=== PATIENT | male | born 1925 | race Caucasian/White ===

== ENCOUNTER 2017-03-03 14:42 | Inpatient (IN) | payer MEDICARE, MEDICAID ==
[~2017-03-03] VITALS: Ht 162.6 cm; Wt 66.7 kg
[~2017-03-03 14:42] MED LIST: AMLO10TA2 PO; ASPI-618 PO; Acetaminophen PO; Allopurinol PO; Blood Sugar Diagnostic VI; DEXT1CAP3 PO; DEXT50DI8 IV; DIVA125C PO; Docusate Sodium PO; FURO-151 PO; INSU100I19 SQ; INSU100V28 SQ; MAGN400O6 PO; PANT40TA2 PO; QUET25TA PO; SITA50TA PO; Terazosin Hcl PO; Valsartan PO; ZOLP5TAB2 PO
[2017-03-03] MEDS ORDERED: HALOPERIDOL LACTATE 5 MG/1 ML VIAL IM ONE (15:15)
[2017-03-03] MEDS ORDERED: LORAZEPAM 2 MG/1 ML VIAL IM ONE (15:15)
[2017-03-03] MEDS ORDERED: diphenhydrAMINE 50 MG/1 ML VIAL IM ONE (15:15)
[2017-03-03] MEDS ORDERED: LORAZEPAM 2 MG/1 ML VIAL ONE (15:30)
[2017-03-03] MEDS ORDERED: diphenhydrAMINE 50 MG/1 ML VIAL ONE (15:30)
[2017-03-03] MEDS ORDERED: HALOPERIDOL LACTATE 5 MG/1 ML VIAL ONE (15:30)
--- NOTE | 2017-03-03 15:50 | NUR ---
Attemtped to do EKG, lab attemtped to draw blood but pt is agitated and combative at this time, ER physician notified.
--- NOTE | 2017-03-03 15:52 | NUR ---
PT IN BED. PT IS BEING COMBATIVE.
[2017-03-03] MEDS ORDERED: OLANZAPINE 10 MG VIAL IM ONE ×2 (16:00→16:19)
[2017-03-03] MEDS ORDERED: VALS80TA2 PO (16:27)
[2017-03-03] MEDS ORDERED: SITA50TA PO (16:27)
[2017-03-03] MEDS ORDERED: GLUC1KIT IM (16:27)
[2017-03-03] MEDS ORDERED: INSU100I19 SQ ×2 (16:27→16:39)
[2017-03-03] MEDS ORDERED: CLOP75TA15 PO (16:27)
[2017-03-03] MEDS ORDERED: ONDA4TAB5 PO (16:39)
[2017-03-03] MEDS ORDERED: REPA2TAB PO (16:39)
[2017-03-03] MEDS ORDERED: PANT40TA4 PO (16:39)
[2017-03-03] MEDS ORDERED: MAGN400O6 PO (16:39)
[2017-03-03 16:56] LABS: BASOPHILS # (AUTO) 0.1 K/uL (0.0-8.0); BASOPHILS % (AUTO) 1.3 % (0.0-2.0); EOSINOPHILS # (AUTO) 0.2 K/uL (0.0-0.7); EOSINOPHILS % (AUTO) 2.2 % (0.0-7.0); LYMPHOCYTES # (AUTO) 1.8 K/uL (20.0-40.0); LYMPHOCYTES % (AUTO) 26.3 % (20.5-51.5); MEAN CORPUSCULAR HEMOGLOBIN 30.7 uug (23.8-33.4); MEAN CORPUSCULAR HGB CONC 33 g/dL (32.5-36.3); MEAN CORPUSCULAR VOLUME 92.3 fL (73.0-96.2); MONOCYTES # (AUTO) 0.5 K/uL (2.0-10.0); MONOCYTES % (AUTO) 7.3 % (0.0-11.0); NEUTROPHILS # (AUTO) 4.2 K/uL (1.8-8.9); NEUTROPHILS % (AUTO) 62.9 % (38.5-71.5); PLATELET COUNT (AUTO) 262 K/uL (152-348); RED BLOOD CELL COUNT(AUTO) 2.93 MIL/uL (4.06-5.63); WHITE BLOOD COUNT (AUTO) 6.7 K/uL (3.6-10.2)
[2017-03-03] MEDS ORDERED: BLOO-1672 MC (16:57)
[2017-03-03 17:08] LABS: CARBON DIOXIDE 31 mmol/L (21-32); CHLORIDE 102 mmol/L (98-107); CREATININE 1.1 mg/dL (0.6-1.3); GLUCOSE 173 mg/dL (74-106); POTASSIUM 3.9 mmol/L (3.5-5.1); UREA NITROGEN, BLOOD 15 mg/dL (7-18)
[2017-03-03 17:14] LABS: ALANINE AMINOTRANSFERASE 12 U/L (16-63); ALKALINE PHOSPHATASE 76 U/L (50-136); ASPARTATE AMINOTRANSFERASE 6 U/L (15-37); BILIRUBIN,DIRECT 0.1 mg/dL (0.0-0.2); BILIRUBIN,TOTAL 0.3 mg/dL (0.2-1.0); TOTAL PROTEIN, SERUM 7.6 g/dL (6.4-8.2)
--- NOTE | 2017-03-03 18:42 | NUR ---
quintin completed, sbar report to yolette beck.
--- NOTE | 2017-03-03 19:14 | NUR ---
pt was changed/belongings list done, sbar report to tiffany garcia . pt to go upstairs once sdmit chart is completetd
--- NOTE | 2017-03-03 19:30 | NUR ---
PT HAS ENLARGEMENT OF SCROTAL AREA- INGUINAL HERNIA. PICTURES OF RIGHT AND LEFT LEGS TAKEN.
--- NOTE | 2017-03-03 19:30 | NUR ---
PT RECEIVED IN TELE. PT IS AWAKE , ALERT BUT CONFUSED.UNDER THE CARE OF DR. HOUGH.DX: ABNORMAL LAB VALUES . BELONGING LIST DONE. ADMISSION PROCESS AND CARE PLAN INITIATED. SAFETY AND COMFORT PROVIDED. WILL CONTINUE TO MONITOR.
--- NOTE | 2017-03-03 19:40 | NUR ---
Pt. admitted to TELE, under care of Dr. Hess Belongs List completed
[2017-03-03 19:50] VITALS: BP 157/79
--- NOTE | 2017-03-03 20:22 | NUR ---
1:1 SITTER AT BEDSIDE. PT TRYING TO GET OUT OF THE BED. BED ALARM ON. WILL CONTINUE TO MONITOR.
[2017-03-04] VITALS: BP 132/48
[2017-03-04] MEDS ORDERED: Medication Not On Formulary EA ([Acetaminophen] (Tylenol) 650 MG) PO PRN (01:00)
[2017-03-04] MEDS ORDERED: INSULIN REGULAR, HUMAN 300 UNITS/3 ML VIAL SQ PRN (01:00)
[2017-03-04] MEDS ORDERED: INSULIN REGULAR, HUMAN 300 UNIT/3 ML VIAL SQ PRN (01:00)
[2017-03-04] MEDS ORDERED: LORAZEPAM 2 MG/1 ML VIAL IV PRN (01:00)
[2017-03-04] MEDS ORDERED: QUETIAPINE FUMARATE 25 MG TABLET PO PRN (01:00)
[2017-03-04] MEDS ORDERED: MORPHINE SULFATE 2 MG/1 ML DISP.SYRIN IV PRN (01:00)
[2017-03-04] MEDS ORDERED: DEXTROSE 50% 50 ML DISP.SYRIN IV PRN (01:00)
[2017-03-04 05:00] VITALS: BP 135/86
--- NOTE | 2017-03-04 05:31 | NUR ---
Awake during initial rounds, Armenian speaking, No s/s of pain/discomforts noted. 1:1 sitter at bedside for safety. Continue care as planned.
--- NOTE | 2017-03-04 06:14 | NUR ---
PT SLEPT T/O THE SHIFT. PT SHOWS NO SIGNS OF DISTRESS. PT BLOOD SUGAR LEVEL IS 115 SO BASED ON INSULIN SLIDING SCALE NO NEED FOR INSULIN. BP 135/86 PULSE 68. SAFETY AND COMFORT PROVIDED.
[2017-03-04 07:06] LABS: BASOPHILS # (AUTO) 0.1 K/uL (0.0-8.0); BASOPHILS % (AUTO) 0.8 % (0.0-2.0); EOSINOPHILS # (AUTO) 0.2 K/uL (0.0-0.7); EOSINOPHILS % (AUTO) 2.3 % (0.0-7.0); HEMATOCRIT 26.2 % (36.7-47.1); HEMOGLOBIN 8.7 g/dL (12.5-16.3); LYMPHOCYTES # (AUTO) 1.9 K/uL (20.0-40.0); LYMPHOCYTES % (AUTO) 23.5 % (20.5-51.5); MEAN CORPUSCULAR HEMOGLOBIN 30.4 uug (23.8-33.4); MEAN CORPUSCULAR HGB CONC 33 g/dL (32.5-36.3); MEAN CORPUSCULAR VOLUME 91.9 fL (73.0-96.2); MONOCYTES # (AUTO) 0.6 K/uL (2.0-10.0); MONOCYTES % (AUTO) 7.2 % (0.0-11.0); NEUTROPHILS # (AUTO) 5.4 K/uL (1.8-8.9); NEUTROPHILS % (AUTO) 66.2 % (38.5-71.5); PLATELET COUNT (AUTO) 268 K/uL (152-348); RED BLOOD CELL COUNT(AUTO) 2.85 MIL/uL (4.06-5.63); WHITE BLOOD COUNT (AUTO) 8.1 K/uL (3.6-10.2)
[2017-03-04 07:14] LABS: ALANINE AMINOTRANSFERASE 13 U/L (16-63); ALKALINE PHOSPHATASE 68 U/L (50-136); ASPARTATE AMINOTRANSFERASE 8 U/L (15-37); BILIRUBIN,TOTAL 0.4 mg/dL (0.2-1.0); CARBON DIOXIDE 30 mmol/L (21-32); CHLORIDE 106 mmol/L (98-107); CHOLESTEROL 124 mg/dL (<200); GLUCOSE 120 mg/dL (74-106); HDL CHOLESTEROL 63 mg/dL (40-60); MAGNESIUM 1.9 mg/dL (1.8-2.4); PHOSPHOROUS 3.3 mg/dL (2.5-4.9); POTASSIUM 3.8 mmol/L (3.5-5.1); THYROID STIMULATING HORMONE 7.501 mIU/mL (0.358-3.740); TOTAL PROTEIN, SERUM 6.9 g/dL (6.4-8.2); TRIGLYCERIDES 82 MG/DL (30-150); UREA NITROGEN, BLOOD 13 mg/dL (7-18)
[2017-03-04] MEDS: BLOOD SUGAR DIAGNOSTIC 1 EACH STRIP VI SCH ×4 (07:24→16:51)
[2017-03-04] MEDS ORDERED: MORPHINE SULFATE 4 MG/1 ML DISP.SYRIN IV PRN (07:30)
[2017-03-04] MEDS ORDERED: ACETAMINOPHEN 325 MG TABLET PO PRN (07:30)
--- NOTE | 2017-03-04 07:30 | NUR ---
Received client in bed asleep but easily arousable. Bed at lowest position for safety and call light within reach for assistance. 1:1 sitter for safety
[2017-03-04 08:00] VITALS: BP 134/78
[2017-03-04] MEDS: DIVALPROEX SPRINKLE 125 MG CAP.SPRINK PO SCH ×2 (08:40→20:53)
[2017-03-04] MEDS: QUETIAPINE FUMARATE 25 MG TABLET PO SCH ×3 (08:40→20:53)
[2017-03-04] MEDS: VALSARTAN 80 MG TABLET PO SCH (08:40)
[2017-03-04] MEDS: AMLODIPINE 10 MG TABLET PO SCH (08:40)
[2017-03-04] MEDS: TERAZOSIN 5 MG CAPSULE PO SCH (08:41)
[2017-03-04] MEDS ORDERED: TERAZOSIN HCL PO SCH (09:00)
[2017-03-04] MEDS ORDERED: FAMOTIDINE. 20 MG/2 ML VIAL IV SCH (09:00)
[2017-03-04] MEDS ORDERED: [UNRECOGNIZED DRUG - OTHER] PO SCH (09:00)
[2017-03-04] MEDS: SITAGLIPTIN PHOSPHATE 50 MG TABLET PO SCH (09:06)
[2017-03-04] MEDS: ALLOPURINOL 100 MG TABLET PO SCH ×2 (09:54→16:17)
[2017-03-04] MEDS: FAMOTIDINE. 20 MG/2 ML VIAL IV SCH (09:55)
[2017-03-04] MEDS: FERROUS SULFATE 325 MG TABEC PO SCH ×2 (11:28→20:53)
[2017-03-04 12:00] VITALS: BP 118/47
[2017-03-04 15:40] VITALS: BP 119/42
[2017-03-04] MEDS: FUROSEMIDE 20 MG/2 ML VIAL IV SCH (16:17)
--- NOTE | 2017-03-04 16:30 | NUR ---
Accu ck at 42, orange given, asymptomatic. Client is combative and arousable. Apple sauce given
--- NOTE | 2017-03-04 16:53 | NUR ---
New IV started 20g on the right forearm. previous IV peripheral line was pulled out.
--- NOTE | 2017-03-04 17:00 | NUR ---
Rechecked accu ck, 57. Dinner given and eat 100%
--- NOTE | 2017-03-04 17:30 | NUR ---
Recheck accu ck, 125 noted. Client is resting in bed with no apparent signs and symptoms of pain, distress or discomfort.
[2017-03-04] MEDS ORDERED: REPAGLINIDE 2 MG TABLET PO SCH (18:00)
--- NOTE | 2017-03-04 18:00 | NUR ---
Noted client trying to get out of bed. 1:1 sitter repositioned back to bed
--- NOTE | 2017-03-04 19:20 | NUR ---
Awake when received. Quite resistive to care. 1:1 sitter provided and at bedside. Continue care as planned.
--- NOTE | 2017-03-04 19:56 | NUR ---
Client is in bed sleeping but easily arousable. Client has been arousable and compliant with medication with apple sauce. Bed at lowest position for safety and call light within reach for assistance.
[2017-03-04 20:00] VITALS: BP 125/56
[2017-03-04] MEDS: DOCUSATE SODIUM 100 MG CAPSULE PO SCH (20:53)
[2017-03-04] MEDS ORDERED: DOCUSATE SODIUM 250 MG CAPSULE PO SCH (21:00)
[2017-03-05 04:00] VITALS: BP 115/67
--- NOTE | 2017-03-05 05:36 | NUR ---
Slept good. Refused lab draw, in and out cath offered for urine specimen collection. Quite resistive to care. Continue on 1:1 sitter for safety. No significant event reported all night. Continue current plan of care.
[2017-03-05] MEDS: LEVOTHYROXINE SODIUM 25 MCG TABLET PO SCH (06:25)
[2017-03-05] MEDS: BLOOD SUGAR DIAGNOSTIC 1 EACH STRIP VI SCH ×4 (06:26→21:13)
[2017-03-05] MEDS: TERAZOSIN 5 MG CAPSULE PO SCH (08:48)
[2017-03-05] MEDS: AMLODIPINE 10 MG TABLET PO SCH (08:48)
[2017-03-05] MEDS: VALSARTAN 80 MG TABLET PO SCH (08:48)
[2017-03-05] MEDS: QUETIAPINE FUMARATE 25 MG TABLET PO SCH ×3 (08:48→21:06)
[2017-03-05] MEDS: FUROSEMIDE 20 MG/2 ML VIAL IV SCH (08:49)
[2017-03-05] MEDS: ALLOPURINOL 100 MG TABLET PO SCH ×2 (08:49→17:11)
[2017-03-05] MEDS: FAMOTIDINE. 20 MG/2 ML VIAL IV SCH (08:49)
[2017-03-05] MEDS: FERROUS SULFATE 325 MG TABEC PO SCH ×2 (08:49→21:06)
[2017-03-05] MEDS: DIVALPROEX SPRINKLE 125 MG CAP.SPRINK PO SCH ×2 (08:49→21:06)
[2017-03-05] MEDS: SITAGLIPTIN PHOSPHATE 50 MG TABLET PO SCH (10:18)
[2017-03-05] MEDS ORDERED: hydrALAZINE HCL 25 MG TABLET PO PRN (10:30)
[2017-03-05 12:00] VITALS: BP 101/48
[2017-03-05 12:25] LABS: BASOPHILS % (AUTO) 0.2 % (0.0-2.0); EOSINOPHILS # (AUTO) 0.2 K/uL (0.0-0.7); EOSINOPHILS % (AUTO) 2.5 % (0.0-7.0); HEMATOCRIT 26.7 % (36.7-47.1); HEMOGLOBIN 8.9 g/dL (12.5-16.3); LYMPHOCYTES % (AUTO) 23.5 % (20.5-51.5); MEAN CORPUSCULAR HEMOGLOBIN 30.7 uug (23.8-33.4); MEAN CORPUSCULAR HGB CONC 33 g/dL (32.5-36.3); MEAN CORPUSCULAR VOLUME 91.9 fL (73.0-96.2); MONOCYTES # (AUTO) 0.6 K/uL (2.0-10.0); MONOCYTES % (AUTO) 6.9 % (0.0-11.0); NEUTROPHILS # (AUTO) 5.8 K/uL (1.8-8.9); NEUTROPHILS % (AUTO) 66.9 % (38.5-71.5); PLATELET COUNT (AUTO) 260 K/uL (152-348); WHITE BLOOD COUNT (AUTO) 8.6 K/uL (3.6-10.2)
[2017-03-05 12:45] LABS: ALANINE AMINOTRANSFERASE 12 U/L (16-63); ALKALINE PHOSPHATASE 74 U/L (50-136); ASPARTATE AMINOTRANSFERASE 12 U/L (15-37); BILIRUBIN,TOTAL 0.4 mg/dL (0.2-1.0); CARBON DIOXIDE 31 mmol/L (21-32); CHLORIDE 108 mmol/L (98-107); GLUCOSE 112 mg/dL (74-106); MAGNESIUM 1.9 mg/dL (1.8-2.4); PHOSPHOROUS 3.8 mg/dL (2.5-4.9); TOTAL PROTEIN, SERUM 6.8 g/dL (6.4-8.2); UREA NITROGEN, BLOOD 14 mg/dL (7-18)
[2017-03-05 15:16] VITALS: BP 132/48
--- NOTE | 2017-03-05 19:30 | NUR ---
Received patient apperas sleeping at this time. Sitter at bedside. Continue care as planned.
[2017-03-05] MEDS: DOCUSATE SODIUM 100 MG CAPSULE PO SCH (21:06)
[2017-03-06 04:00] VITALS: BP 143/33
[2017-03-06] MEDS: BLOOD SUGAR DIAGNOSTIC 1 EACH STRIP VI SCH ×4 (05:15→21:42)
[2017-03-06] MEDS: LEVOTHYROXINE SODIUM 25 MCG TABLET PO SCH (05:17)
--- NOTE | 2017-03-06 06:20 | NUR ---
Slept well, No complaint presented all night. No problem presented during medication time, swallowed without any problem. Refused AM labs today. Will endorse. Continue care as planned.
[2017-03-06] MEDS: ALLOPURINOL 100 MG TABLET PO SCH ×2 (08:09→17:19)
[2017-03-06] MEDS: TERAZOSIN 5 MG CAPSULE PO SCH (08:09)
[2017-03-06] MEDS: VALSARTAN 80 MG TABLET PO SCH (08:09)
[2017-03-06] MEDS: AMLODIPINE 10 MG TABLET PO SCH (08:10)
[2017-03-06] MEDS: DIVALPROEX SPRINKLE 125 MG CAP.SPRINK PO SCH ×2 (08:10→20:28)
[2017-03-06] MEDS: FUROSEMIDE 20 MG/2 ML VIAL IV SCH (08:10)
[2017-03-06] MEDS: FAMOTIDINE 20 MG TABLET PO SCH (08:10)
[2017-03-06] MEDS: QUETIAPINE FUMARATE 25 MG TABLET PO SCH ×3 (08:10→20:29)
[2017-03-06] MEDS: FERROUS SULFATE 325 MG TABEC PO SCH ×2 (08:15→20:29)
--- NOTE | 2017-03-06 08:19 | NUR ---
IRON HELD, IRON CAN'T BE CRUSHED. PT IS ON PUREE DIET AND AT RISK FOR ASPIRATING THE WHOLE PILL.
[2017-03-06 09:45] LABS: BASOPHILS # (AUTO) 0.1 K/uL (0.0-8.0); BASOPHILS % (AUTO) 1.5 % (0.0-2.0); EOSINOPHILS # (AUTO) 0.1 K/uL (0.0-0.7); EOSINOPHILS % (AUTO) 1.1 % (0.0-7.0); HEMATOCRIT 26.1 % (36.7-47.1); HEMOGLOBIN 8.6 g/dL (12.5-16.3); LYMPHOCYTES # (AUTO) 1.8 K/uL (20.0-40.0); MEAN CORPUSCULAR HEMOGLOBIN 30.5 uug (23.8-33.4); MEAN CORPUSCULAR HGB CONC 33 g/dL (32.5-36.3); MEAN CORPUSCULAR VOLUME 92.2 fL (73.0-96.2); MONOCYTES # (AUTO) 0.8 K/uL (2.0-10.0); MONOCYTES % (AUTO) 8.3 % (0.0-11.0); NEUTROPHILS # (AUTO) 6.8 K/uL (1.8-8.9); NEUTROPHILS % (AUTO) 70.1 % (38.5-71.5); PLATELET COUNT (AUTO) 252 K/uL (152-348); RED BLOOD CELL COUNT(AUTO) 2.83 MIL/uL (4.06-5.63); WHITE BLOOD COUNT (AUTO) 9.6 K/uL (3.6-10.2)
[2017-03-06 10:00] LABS: ALANINE AMINOTRANSFERASE 13 U/L (16-63); ALKALINE PHOSPHATASE 77 U/L (50-136); ASPARTATE AMINOTRANSFERASE 11 U/L (15-37); BILIRUBIN,TOTAL 0.4 mg/dL (0.2-1.0); CARBON DIOXIDE 29 mmol/L (21-32); CHLORIDE 106 mmol/L (98-107); CREATININE 1.4 mg/dL (0.6-1.3); GLUCOSE 183 mg/dL (74-106); PHOSPHOROUS 3.3 mg/dL (2.5-4.9); POTASSIUM 4.2 mmol/L (3.5-5.1); UREA NITROGEN, BLOOD 21 mg/dL (7-18)
[2017-03-06] MEDS ORDERED: DEXTROSE 50% 50 ML DISP.SYRIN IV PRN (10:45)
[2017-03-06] MEDS: INSULIN REGULAR, HUMAN 300 UNIT/3 ML VIAL SQ PRN ×2 (11:18→16:43)
[2017-03-06] MEDS ORDERED: IV NS 1000 ML 1,000 ML IV PRN (12:30)
[2017-03-06] MEDS ORDERED: IV 1/2NS 1000 ML 500 ML IV PRN (14:00)
[2017-03-06 15:27] LABS: *OCCULT BLOOD STOOL NEGATIVE (NEGATIVE)
--- NOTE | 2017-03-06 15:30 | NUR ---
Order obtained for mitten restraints. pt is pulling out IV lines and doesn't allow care. pt is confused AOx1. q15 checks initiated.
[2017-03-06] MEDS ORDERED: IV D5W-0.45% NS 1000 ML BAG IV ONE (17:30)
--- NOTE | 2017-03-06 18:59 | NUR ---
pt is observed resting with no signs of respiratory distress. Water provided and toileting provided throughout the day. circulation in hands checked and are warm with capillary refill. Continue to monitor pt.
--- NOTE | 2017-03-06 19:30 | NUR ---
Sleeping during rounds. Sitter at bedside. Hand mitten in used for safety. Safety measures and fall precaution maintained. Continue plan of care.
[2017-03-06 20:00] VITALS: BP 115/52
--- NOTE | 2017-03-06 20:25 | NUR ---
Spoke with Sherice Mitchell patient's granddaughter regarding EGD procedure in AM that needs a consent signed. She said that she'll come in AM prior to the procedure. Charge nurse aware.
[2017-03-06] MEDS: DOCUSATE SODIUM 100 MG CAPSULE PO SCH (20:27)
--- NOTE | 2017-03-06 20:35 | NUR ---
Sherice Mitchell called and asking about the risk and benefit of the procedure and needs to talk to the PMD. Advised her to talk to the charge nurse or her granddad's nurse so they can get hold of the PMD.
[2017-03-07 04:00] VITALS: BP 153/52
--- NOTE | 2017-03-07 06:03 | NUR ---
Slept well. NPO after midnight maintained as ordered.. Sitter remain at bedside. No agitation/ restlessness presented. No significant event reported all night. Continue current plan of care.
[2017-03-07] MEDS: LEVOTHYROXINE SODIUM 25 MCG TABLET PO SCH (06:07)
[2017-03-07] MEDS: BLOOD SUGAR DIAGNOSTIC 1 EACH STRIP VI SCH ×2 (06:13→11:58)
[2017-03-07 06:46] LABS: BASOPHILS # (AUTO) 0.1 K/uL (0.0-8.0); BASOPHILS % (AUTO) 0.9 % (0.0-2.0); EOSINOPHILS # (AUTO) 0.3 K/uL (0.0-0.7); HEMATOCRIT 25.8 % (36.7-47.1); HEMOGLOBIN 8.6 g/dL (12.5-16.3); LYMPHOCYTES # (AUTO) 2.3 K/uL (20.0-40.0); LYMPHOCYTES % (AUTO) 26.7 % (20.5-51.5); MEAN CORPUSCULAR HEMOGLOBIN 30.6 uug (23.8-33.4); MEAN CORPUSCULAR HGB CONC 33 g/dL (32.5-36.3); MEAN CORPUSCULAR VOLUME 92.4 fL (73.0-96.2); MONOCYTES # (AUTO) 0.8 K/uL (2.0-10.0); MONOCYTES % (AUTO) 9.2 % (0.0-11.0); NEUTROPHILS # (AUTO) 5.1 K/uL (1.8-8.9); NEUTROPHILS % (AUTO) 60.2 % (38.5-71.5); PLATELET COUNT (AUTO) 262 K/uL (152-348); WHITE BLOOD COUNT (AUTO) 8.4 K/uL (3.6-10.2)
[2017-03-07 06:51] LABS: ALANINE AMINOTRANSFERASE 13 U/L (16-63); ALKALINE PHOSPHATASE 72 U/L (50-136); ASPARTATE AMINOTRANSFERASE 10 U/L (15-37); BILIRUBIN,TOTAL 0.5 mg/dL (0.2-1.0); CARBON DIOXIDE 32 mmol/L (21-32); CHLORIDE 108 mmol/L (98-107); CREATININE 1.1 mg/dL (0.6-1.3); GLUCOSE 141 mg/dL (74-106); MAGNESIUM 2.1 mg/dL (1.8-2.4); PHOSPHOROUS 3.3 mg/dL (2.5-4.9); POTASSIUM 4.3 mmol/L (3.5-5.1); TOTAL PROTEIN, SERUM 6.9 g/dL (6.4-8.2); UREA NITROGEN, BLOOD 20 mg/dL (7-18)
[2017-03-07 08:00] VITALS: BP 154/58
--- NOTE | 2017-03-07 08:39 | NUR ---
PAGED YASMINE DUFFY NP REGARDING GRAND DAUGHTERS CONCERNS. WILL CONTINUE TO FOLLOW UP
--- NOTE | 2017-03-07 09:00 | NUR ---
SPOKE WITH YASMINE DUFFY NP AND RELAYED GRANDDAUGHTERS NUMBER REGARDING CONSENT FOR EGD
[2017-03-07] MEDS: ALLOPURINOL 100 MG TABLET PO SCH (10:17)
[2017-03-07] MEDS: FAMOTIDINE 20 MG TABLET PO SCH (10:17)
[2017-03-07] MEDS: DIVALPROEX SPRINKLE 125 MG CAP.SPRINK PO SCH (10:17)
[2017-03-07] MEDS: QUETIAPINE FUMARATE 25 MG TABLET PO SCH (10:17)
[2017-03-07] MEDS: FERROUS SULFATE 325 MG TABEC PO SCH (10:17)
[2017-03-07] MEDS: VALSARTAN 80 MG TABLET PO SCH (10:18)
[2017-03-07] MEDS: TERAZOSIN 5 MG CAPSULE PO SCH (10:19)
[2017-03-07] MEDS: AMLODIPINE 10 MG TABLET PO SCH (10:20)
[2017-03-07 11:26] VITALS: BP 134/53
[2017-03-07] MEDS ORDERED: Blood Sugar Diagnostic VI (12:14)
[2017-03-07] MEDS ORDERED: FAMO20TA8 PO (12:14)
[2017-03-07] MEDS ORDERED: HYDR25TA86 PO (12:14)
[2017-03-07] MEDS ORDERED: LEVO25TA9 PO (12:14)
[2017-03-07] MEDS ORDERED: DOCU100C36 PO (12:14)
[2017-03-07] MEDS ORDERED: FERR325T28 PO (12:14)
[2017-03-07] MEDS ORDERED: AMLO10TA2 PO (12:14)
[2017-03-07] MEDS ORDERED: SOD FERRIC GLUC COMPLX/SUCROSE 125 MG in IV NORMAL SALINE 100 ML IV ONE (12:30)
[2017-03-07] MEDS ORDERED: FURO-152 PO (12:31)
[2017-03-07] MEDS ORDERED: SOD FERRIC GLUC COMPLX/SUCROSE 125 MG in IV NORMAL SALINE 100 ML IV SCH (14:00)
[2017-03-07 15:39] VITALS: BP 116/48
--- NOTE | 2017-03-07 16:15 | NUR ---
DISCHARGE NOTED, GRANDDAUGHTER MADE AWARE, AGREEABLE WITH PLAN OF CARE. IV REMOVED WITH NO REDNESS OR IRRITATION NOTED. ALL BELONGINGS ACCOUNTED FOR AND SENT WITH PT. PT LEFT VIA GURNEY WITH EMS STAFF.
== END 2017-03-07 16:30 | DRG 291 ==
LOC: ER 14:43 → TELE 19:25 → MED 03-04 15:45
PROVIDERS: ADMIT Internal Medicine; ATTEND Internal Medicine
DX: I11.0 Hypertensive heart disease with heart failure (principal); G93.40 Encephalopathy, unspecified; N17.0 Acute kidney failure with tubular necrosis; E44.0 Moderate protein-calorie malnutrition; E87.0 Hyperosmolality and hypernatremia; E11.65 Type 2 diabetes mellitus with hyperglycemia; D68.9 Coagulation defect, unspecified; I48.2 Chronic atrial fibrillation; J44.9 Chronic obstructive pulmonary disease, unspecified; D50.9 Iron deficiency anemia, unspecified; E03.9 Hypothyroidism, unspecified; I50.33 Acute on chronic diastolic (congestive) heart failure; T50.1X5A Adverse effect of loop [high-ceiling] diuretics, initial encounter; Y92.239 Unspecified place in hospital as the place of occurrence of the external cause; F03.90 Unspecified dementia, unspecified severity, without behavioral disturbance, psychotic disturbance, mood disturbance, and anxiety; E78.5 Hyperlipidemia, unspecified; H04.129 Dry eye syndrome of unspecified lacrimal gland; I25.10 Atherosclerotic heart disease of native coronary artery without angina pectoris; I35.0 Nonrheumatic aortic (valve) stenosis; Z95.1 Presence of aortocoronary bypass graft; Z79.02 Long term (current) use of antithrombotics/antiplatelets; Z95.0 Presence of cardiac pacemaker; Z79.82 Long term (current) use of aspirin; K21.9 Gastro-esophageal reflux disease without esophagitis; Z79.899 Other long term (current) drug therapy; Z79.4 Long term (current) use of insulin; Z86.73 Personal history of transient ischemic attack (TIA), and cerebral infarction without residual deficits; Z68.25 Body mass index [BMI] 25.0-25.9, adult; N40.0 Benign prostatic hyperplasia without lower urinary tract symptoms; K40.90 Unilateral inguinal hernia, without obstruction or gangrene, not specified as recurrent; M10.9 Gout, unspecified; M94.0 Chondrocostal junction syndrome [Tietze]
CPT/HCPCS: 36415; 70030-TC; 71045; 82746; 83550; 83735; 84100; 84443; 85025; 85730; 86850; 86900; 86901; 92526; 92610; 93005; A4663; C1758; J1200; J1630; J1815; J1940; J2060; J2358; J2916; J3490; J7030; J7050; J8499

== ENCOUNTER 2017-06-04 10:45 | Inpatient (IN) | payer MEDICARE, MEDICAID ==
[~2017-06-04] VITALS: Ht 172.7 cm; Wt 64.9 kg
[~2017-06-04 10:45] MED LIST changes: -ASPI-618 PO; -DEXT1CAP3 PO; -DEXT50DI8 IV; +DOCU100C36 PO; -Docusate Sodium PO; +FAMO20TA8 PO; +FERR325T28 PO; -FURO-151 PO; +FURO-152 PO; +HYDR25TA86 PO; -INSU100I19 SQ; -INSU100V28 SQ; +LEVO25TA9 PO; +ONDA4TAB5 PO; -PANT40TA2 PO; -SITA50TA PO; +VALS80TA2 PO; -Valsartan PO; -ZOLP5TAB2 PO
--- NOTE | 2017-06-04 10:50 | NUR ---
Dr Oneal at the bedside for MSE.
[2017-06-04] MEDS ORDERED: IV NORMAL SALINE 1000 ML BAG IV ONE (11:00)
[2017-06-04] MEDS ORDERED: INSU100V10 SQ (11:13)
[2017-06-04] MEDS ORDERED: GLUC1KIT IM (11:13)
[2017-06-04] MEDS ORDERED: VALS80TA2 PO (11:13)
[2017-06-04 11:33] LABS: BASOPHILS # (AUTO) 0.1 K/uL (0.0-8.0); BASOPHILS % (AUTO) 0.6 % (0.0-2.0); HEMATOCRIT 28.2 % (36.7-47.1); HEMOGLOBIN 9.4 g/dL (12.5-16.3); LYMPHOCYTES # (AUTO) 1.3 K/uL (20.0-40.0); LYMPHOCYTES % (AUTO) 11.5 % (20.5-51.5); MEAN CORPUSCULAR HEMOGLOBIN 30.6 uug (23.8-33.4); MEAN CORPUSCULAR HGB CONC 33 g/dL (32.5-36.3); MEAN CORPUSCULAR VOLUME 92.1 fL (73.0-96.2); MONOCYTES # (AUTO) 0.8 K/uL (2.0-10.0); MONOCYTES % (AUTO) 7.2 % (0.0-11.0); NEUTROPHILS # (AUTO) 9.4 K/uL (1.8-8.9); NEUTROPHILS % (AUTO) 80.7 % (38.5-71.5); PLATELET COUNT (AUTO) 218 K/uL (152-348); RED BLOOD CELL COUNT(AUTO) 3.06 MIL/uL (4.06-5.63); WHITE BLOOD COUNT (AUTO) 11.7 K/uL (3.6-10.2)
[2017-06-04 11:34] LABS: CARBON DIOXIDE 29 mmol/L (21-32); CHLORIDE 104 mmol/L (98-107); CREATININE 1.4 mg/dL (0.6-1.3); GLUCOSE 180 mg/dL (74-106); POTASSIUM 3.8 mmol/L (3.5-5.1); UREA NITROGEN, BLOOD 22 mg/dL (7-18)
[2017-06-04 11:39] LABS: ALANINE AMINOTRANSFERASE 17 U/L (16-63); ALKALINE PHOSPHATASE 80 U/L (50-136); ASPARTATE AMINOTRANSFERASE 11 U/L (15-37); BILIRUBIN,DIRECT 0.1 mg/dL (0.0-0.2); BILIRUBIN,TOTAL 0.4 mg/dL (0.2-1.0); LIPASE 49 U/L (73-393)
--- NOTE | 2017-06-04 11:49 | NUR ---
Per MD pt is not to recieve fluid per protocol for sepsis, due to hx of CHF.
[2017-06-04] MEDS ORDERED: MAGNESIUM HYDROXIDE 30 ML LIQUID UDC PO PRN (12:00)
[2017-06-04] MEDS ORDERED: ONDANSETRON 4 MG/2 ML VIAL IV PRN (12:00)
[2017-06-04] MEDS ORDERED: HYDROCODONE/APAP 5-325MG TABLET PO PRN (12:00)
[2017-06-04] MEDS ORDERED: ONDANSETRON HCL 4 MG TABLET PO PRN (12:00)
[2017-06-04] MEDS ORDERED: DEXTROSE 50% 50 ML DISP.SYRIN IV PRN (12:00)
[2017-06-04] MEDS ORDERED: Medication Not On Formulary EA ([Acetaminophen] (Tylenol) 650 MG) PO PRN (12:00)
[2017-06-04] MEDS ORDERED: QUETIAPINE FUMARATE 25 MG TABLET PO PRN (12:00)
[2017-06-04] MEDS ORDERED: INSULIN REGULAR, HUMAN 300 UNITS/3 ML VIAL SQ PRN (12:00)
[2017-06-04] MEDS ORDERED: FUROSEMIDE 40 MG/4 ML VIAL ONE (12:13)
[2017-06-04] MEDS ORDERED: FUROSEMIDE 20 MG/2 ML VIAL IV ONE (12:15)
[2017-06-04 13:12] LABS: *BILIRUBIN,URIN NEGATIVE (NEGATIVE); *BLOOD, URINE 2+ (NEGATIVE); *CLARITY,URINE CLOUDY (CLEAR); *COLOR,URINE YELLOW (YELLOW); *KETONES,URINE NEGATIVE (NEGATIVE); *PROTEIN,URINE 2+ (NEGATIVE); *UROBILINOGEN,URINE 0.2 E.U./dl (NORMAL); LEUKOCYTE ESTERASE ,URINE 3+ (NEGATIVE); NITRITE, URINE NEGATIVE (NEGATIVE); UGLUCOSE NEGATIVE (NEGATIVE)
--- NOTE | 2017-06-04 13:15 | NUR ---
ADMITTED FROM [facility] AN 89 YO MALE WITH ADM DX OF CHF, ALERT BUT CONFUSED X3 WITH 2L NC SATURATING AT 98% ROUTINE ADMISSION ASSESSMENT INITIATED. MD NOTIFIED OF ADMISSION. V-PACED ON MONITOR ULR AFIB CONTROLLED. CLOSELY MONITORED
[2017-06-04 13:20] LABS: BACTERIA,URINE FEW /HPF (NONE SEEN); SQUAMOUS EPITHELIAL CELL,UR FEW /HPF (NONE SEEN); WBC,URINE TNTC /HPF (0-3)
[2017-06-04 13:32] VITALS: BP 139/55
[2017-06-04 15:30] VITALS: BP_SYST 135; BP_SYST 139; BP_DIAS 46; BP_DIAS 56
[2017-06-04] MEDS: BLOOD SUGAR DIAGNOSTIC 1 EACH STRIP VI SCH ×2 (16:36→21:00)
[2017-06-04] MEDS: QUETIAPINE FUMARATE 25 MG TABLET PO SCH ×2 (16:38→19:54)
[2017-06-04] MEDS: ALLOPURINOL 100 MG TABLET PO SCH (16:38)
[2017-06-04] MEDS: INSULIN REGULAR, HUMAN 300 UNIT/3 ML VIAL SQ PRN (16:40)
[2017-06-04] MEDS ORDERED: [UNRECOGNIZED DRUG - OTHER] PO SCH (17:00)
[2017-06-04] MEDS: FUROSEMIDE 40 MG/4 ML VIAL IV SCH (19:54)
[2017-06-04] MEDS: DIVALPROEX SPRINKLE 125 MG CAP.SPRINK PO SCH (19:54)
[2017-06-04] MEDS: DOCUSATE SODIUM 100 MG CAPSULE PO SCH (19:54)
[2017-06-04] MEDS: ACETAMINOPHEN 325 MG TABLET PO PRN (19:54)
[2017-06-04] MEDS: TERAZOSIN 5 MG CAPSULE PO SCH (19:57)
[2017-06-04 20:00] VITALS: BP 150/52
[2017-06-04] MEDS ORDERED: hydrALAZINE HCL 25 MG TABLET PO PRN (21:00)
--- NOTE | 2017-06-04 21:00 | NUR ---
Patient awake, no sign of distress. Turned & repositioned in bed. Routine night meds given, aspiration precaution observed. Tele shows A-fib, A-pacing w/ occasional PVCs.
[2017-06-04] MEDS: hydrALAZINE HCL 25 MG TABLET PO SCH ×2 (22:00→23:59)
[2017-06-05] VITALS: BP 98/43
[2017-06-05 04:00] VITALS: BP 124/89
[2017-06-05] MEDS: hydrALAZINE HCL 25 MG TABLET PO SCH ×3 (05:20→22:20)
[2017-06-05] MEDS: ACETAMINOPHEN 325 MG TABLET PO PRN ×2 (05:21→22:34)
[2017-06-05] MEDS: BLOOD SUGAR DIAGNOSTIC 1 EACH STRIP VI SCH ×4 (05:21→21:04)
[2017-06-05] MEDS: LEVOTHYROXINE SODIUM 25 MCG TABLET PO SCH (05:24)
--- NOTE | 2017-06-05 06:00 | NUR ---
Awake, coughing on & off non productively, has body temp of 100 F. Tylenol 650 mg po given, patient tolerated crushed meds w/ apple sauce. Cooling measures applied. Dr. Hess notified.
[2017-06-05 06:17] LABS: BASOPHILS # (AUTO) 0.1 K/uL (0.0-8.0); BASOPHILS % (AUTO) 0.7 % (0.0-2.0); EOSINOPHILS # (AUTO) 0.1 K/uL (0.0-0.7); HEMOGLOBIN 9.3 g/dL (12.5-16.3); LYMPHOCYTES # (AUTO) 1.2 K/uL (20.0-40.0); MEAN CORPUSCULAR HEMOGLOBIN 31.3 uug (23.8-33.4); MEAN CORPUSCULAR HGB CONC 34 g/dL (32.5-36.3); MONOCYTES # (AUTO) 0.7 K/uL (2.0-10.0); MONOCYTES % (AUTO) 6.9 % (0.0-11.0); NEUTROPHILS # (AUTO) 7.7 K/uL (1.8-8.9); NEUTROPHILS % (AUTO) 79.4 % (38.5-71.5); PLATELET COUNT (AUTO) 213 K/uL (152-348); RED BLOOD CELL COUNT(AUTO) 2.96 MIL/uL (4.06-5.63); WHITE BLOOD COUNT (AUTO) 9.8 K/uL (3.6-10.2)
[2017-06-05 06:19] LABS: CARBON DIOXIDE 31 mmol/L (21-32); CHLORIDE 104 mmol/L (98-107); CREATININE 1.2 mg/dL (0.6-1.3); GLUCOSE 153 mg/dL (74-106); MAGNESIUM 1.6 mg/dL (1.8-2.4); PHOSPHOROUS 3.2 mg/dL (2.5-4.9); POTASSIUM 3.8 mmol/L (3.5-5.1); UREA NITROGEN, BLOOD 21 mg/dL (7-18)
[2017-06-05] MEDS ORDERED: CEFTRIAXONE 1 G in IV DEXTROSE 5% 50 ML IV SCH (07:00)
[2017-06-05] MEDS: ALLOPURINOL 100 MG TABLET PO SCH ×2 (08:07→16:36)
[2017-06-05] MEDS: QUETIAPINE FUMARATE 25 MG TABLET PO SCH ×3 (08:07→20:52)
[2017-06-05] MEDS: CEFTRIAXONE 1 G in IV DEXTROSE 5% 50 ML IV SCH (08:07)
[2017-06-05] MEDS: DIVALPROEX SPRINKLE 125 MG CAP.SPRINK PO SCH ×2 (08:08→20:53)
[2017-06-05] MEDS: AMLODIPINE 10 MG TABLET PO SCH (08:08)
[2017-06-05] MEDS: VALSARTAN 80 MG TABLET PO SCH (08:08)
[2017-06-05] MEDS: FAMOTIDINE 20 MG TABLET PO SCH (08:08)
[2017-06-05] MEDS: FUROSEMIDE 40 MG/4 ML VIAL IV SCH (08:09)
[2017-06-05] MEDS: Z GUARD REMEDY PASTE 57 GM TUBE TOP PRN (08:09)
[2017-06-05] MEDS: INSULIN REGULAR, HUMAN 300 UNIT/3 ML VIAL SQ PRN ×3 (08:13→16:35)
[2017-06-05] MEDS ORDERED: TERAZOSIN HCL PO SCH (09:00)
[2017-06-05] MEDS ORDERED: MAGNESIUM HYDROXIDE 30 ML LIQUID UDC PO SCH (09:00)
[2017-06-05] MEDS ORDERED: VALSARTAN 80 MG TABLET PO SCH (09:00)
--- NOTE | 2017-06-05 11:00 | NUR ---
SPEECH THERAPIST FOR SWALLOW EVAL RECOMMEND PUREE DIABETIC DIET WITH HONEY THICK CONSISTENCY. WILL CONTINUE TO FOLLOW-UP PT
[2017-06-05 11:14] VITALS: BP 105/46
[2017-06-05] MEDS ORDERED: MAGNESIUM OXIDE 400 MG TABLET PO ONE (12:15)
--- NOTE | 2017-06-05 13:00 | NUR ---
SEEN BY HOSPITALIST NOTED LABS WITH LOW MAGNESIUM
--- NOTE | 2017-06-05 15:09 | NUR ---
SEEN BY PHYSICAL THERAPIST SEE NOTES
[2017-06-05 15:25] VITALS: BP 115/50
--- NOTE | 2017-06-05 18:20 | NUR ---
CONTINUE WITH IV ANTIBIOTIC FOR UTI NO ADVERSE REACTION
--- NOTE | 2017-06-05 19:30 | NUR ---
Received patient laying in bed. No acute distress noted. HOB elevated. Patient is on O2 2L NC. A/O x 1. Patient becomes combative when you try and touch him. TELE AFib at 80's. Pacemaker on the left chest wall. Safety initiated. Call light within reach. Will continue to monitor.
--- NOTE | 2017-06-05 19:30 | NUR ---
Condom cath in place. Draining clear yellow urine. Aspiration precautions. Will continue to monitor.
[2017-06-05 20:00] VITALS: BP 119/46
[2017-06-05] MEDS: DOCUSATE SODIUM 100 MG CAPSULE PO SCH (20:51)
[2017-06-05] MEDS: TERAZOSIN 5 MG CAPSULE PO SCH (22:20)
[2017-06-06] VITALS: BP 96/41
[2017-06-06] MEDS ORDERED: LORAZEPAM 2 MG/1 ML VIAL IV PRN (03:15)
[2017-06-06 04:00] VITALS: BP 116/58
--- NOTE | 2017-06-06 05:00 | NUR ---
Patient became agitated. Pulled out IV, Nasal cannula and monitor leads. MD made aware. Orders for Ativan in place. Ativan 0.5 given. Will continue to monitor.
--- NOTE | 2017-06-06 05:08 | NUR ---
Patient slept intermittently t/o shift. Patient became anxious and agitated at one point. I caught him pulling on the IV, Nasal Cannula and monitor leads. Ativan given as ordered by MD. A/O to self only. TELE Afib at 80's. Condom cath in place. Safety and comfort measures maintained t/o shift. All meds given as ordered with no adverse effect. Vital signs stable. All needs met.
[2017-06-06 06:14] LABS: CARBON DIOXIDE 31 mmol/L (21-32); CHLORIDE 105 mmol/L (98-107); CREATININE 1.3 mg/dL (0.6-1.3); GLUCOSE 151 mg/dL (74-106); MAGNESIUM 1.7 mg/dL (1.8-2.4); POTASSIUM 3.8 mmol/L (3.5-5.1); UREA NITROGEN, BLOOD 31 mg/dL (7-18)
[2017-06-06] MEDS: LEVOTHYROXINE SODIUM 25 MCG TABLET PO SCH (07:09)
[2017-06-06] MEDS: hydrALAZINE HCL 25 MG TABLET PO SCH (07:09)
[2017-06-06] MEDS: BLOOD SUGAR DIAGNOSTIC 1 EACH STRIP VI SCH ×2 (07:09→11:29)
--- NOTE | 2017-06-06 07:26 | NUR ---
RESTING COMFORTABLY IN BED NO SS OF DISTRESS CLOSELY MONITORED.CONTROLLED A-FIB ON MONITOR
[2017-06-06] MEDS: INSULIN REGULAR, HUMAN 300 UNIT/3 ML VIAL SQ PRN ×2 (07:44→11:31)
[2017-06-06] MEDS: FAMOTIDINE 20 MG TABLET PO SCH (08:06)
[2017-06-06] MEDS: DIVALPROEX SPRINKLE 125 MG CAP.SPRINK PO SCH (08:07)
[2017-06-06] MEDS: QUETIAPINE FUMARATE 25 MG TABLET PO SCH (08:07)
[2017-06-06] MEDS: ALLOPURINOL 100 MG TABLET PO SCH (08:07)
[2017-06-06] MEDS: VALSARTAN 80 MG TABLET PO SCH (08:07)
[2017-06-06] MEDS: Z GUARD REMEDY PASTE 57 GM TUBE TOP PRN (08:08)
[2017-06-06] MEDS: AMLODIPINE 10 MG TABLET PO SCH (08:08)
[2017-06-06] MEDS: CEFTRIAXONE 1 G in IV DEXTROSE 5% 50 ML IV SCH (08:08)
[2017-06-06] MEDS ORDERED: FUROSEMIDE 20 MG TABLET PO SCH (09:00)
[2017-06-06] MEDS ORDERED: CEPH-570 PO (10:18)
--- NOTE | 2017-06-06 11:00 | NUR ---
SEEN BY HOSPITALIST WITH DC ORDER BACK TO [facility], RADIOLOGY ADMINISTRATOR AWARE
[2017-06-06] MEDS: MAGNESIUM SULFATE/D5W 100 ML IV SCH ×2 (11:16→11:31)
[2017-06-06 11:28] VITALS: BP 125/61
--- NOTE | 2017-06-06 14:33 | NUR ---
DISCHARGED TO [facility] STABLE REPORT GIVEN TO SNF AND AMBULANCE STAFF
== END 2017-06-06 14:58 | DRG 291 ==
LOC: ER 10:45 → TELE 12:44
PROVIDERS: ADMIT Internal Medicine; ATTEND Internal Medicine
DX: I13.0 Hypertensive heart and chronic kidney disease with heart failure and stage 1 through stage 4 chronic kidney disease, or unspecified chronic kidney disease (principal); I50.33 Acute on chronic diastolic (congestive) heart failure; J96.01 Acute respiratory failure with hypoxia; E43 Unspecified severe protein-calorie malnutrition; G92 Toxic encephalopathy; E11.22 Type 2 diabetes mellitus with diabetic chronic kidney disease; D63.8 Anemia in other chronic diseases classified elsewhere; I48.2 Chronic atrial fibrillation; F03.90 Unspecified dementia, unspecified severity, without behavioral disturbance, psychotic disturbance, mood disturbance, and anxiety; N39.0 Urinary tract infection, site not specified; I35.0 Nonrheumatic aortic (valve) stenosis; Z95.1 Presence of aortocoronary bypass graft; N18.9 Chronic kidney disease, unspecified; Z79.4 Long term (current) use of insulin; I25.10 Atherosclerotic heart disease of native coronary artery without angina pectoris; Z95.0 Presence of cardiac pacemaker; Z86.73 Personal history of transient ischemic attack (TIA), and cerebral infarction without residual deficits; Z79.899 Other long term (current) drug therapy; M10.9 Gout, unspecified; B95.1 Streptococcus, group B, as the cause of diseases classified elsewhere; Z68.21 Body mass index [BMI] 21.0-21.9, adult; E03.9 Hypothyroidism, unspecified; M19.90 Unspecified osteoarthritis, unspecified site; N40.0 Benign prostatic hyperplasia without lower urinary tract symptoms; J44.9 Chronic obstructive pulmonary disease, unspecified; H04.129 Dry eye syndrome of unspecified lacrimal gland
CPT/HCPCS: 36415; 70030-TC; 71045; 74230; 83605; 83690; 83735; 84100; 85025; 85730; 87040; 87077; 87086; 92610; 93005; 93307; A4663; J0696; J1815; J1940; J2060; J3475; J7030; J7050; J7060; J8499

== ENCOUNTER 2017-06-20 16:09 | Inpatient (IN) | payer MEDICARE, MEDICAID ==
[~2017-06-20] VITALS: Ht 172.7 cm; Wt 58.7 kg
[~2017-06-20 16:09] MED LIST changes: +CEPH-570 PO; +GLUC1KIT IM; +INSU100V10 SQ
--- NOTE | 2017-06-20 16:12 | NUR ---
FYI: Pt arrived in ER via [facility] ambulance at 1557 and placed in room2a, however pt did not show up on ER tracker until 161.
[2017-06-20] MEDS ORDERED: IV NORMAL SALINE 1000 ML BAG IV ONE (16:30)
[2017-06-20] MEDS ORDERED: METR500T PO (16:30)
[2017-06-20] MEDS ORDERED: LEVO500T2 PO (16:30)
[2017-06-20] MEDS ORDERED: CRAN405C PO (16:30)
[2017-06-20] MEDS ORDERED: VANCOMYCIN IV 1,000 MG in IV DEXTROSE 5% 250 ML IV ONE (16:30)
[2017-06-20] MEDS ORDERED: SACC250C9 PO (16:30)
[2017-06-20] MEDS ORDERED: PIPERACILLIN SODIUM/TAZOBACTAM 3.375 G in IV DEXTROSE 5% 50 ML IV ONE (16:30)
[2017-06-20] MEDS ORDERED: VANCOMYCIN IV 200 ML ONE (16:38)
[2017-06-20] MEDS ORDERED: PIPERACILLIN/TAZOBACTAM/D5W 50 ML IV ONE (16:38)
[2017-06-20 16:50] LABS: BASOPHILS # (AUTO) 0.1 K/uL (0.0-8.0); BASOPHILS % (AUTO) 0.9 % (0.0-2.0); EOSINOPHILS % (AUTO) 0.1 % (0.0-7.0); HEMATOCRIT 27.9 % (36.7-47.1); HEMOGLOBIN 9.1 g/dL (12.5-16.3); LYMPHOCYTES # (AUTO) 1.5 K/uL (20.0-40.0); LYMPHOCYTES % (AUTO) 9.8 % (20.5-51.5); MEAN CORPUSCULAR HEMOGLOBIN 30.1 uug (23.8-33.4); MEAN CORPUSCULAR HGB CONC 33 g/dL (32.5-36.3); MONOCYTES # (AUTO) 0.9 K/uL (2.0-10.0); NEUTROPHILS % (AUTO) 83.2 % (38.5-71.5); RED BLOOD CELL COUNT(AUTO) 3.04 MIL/uL (4.06-5.63)
[2017-06-20 16:51] LABS: PLATELET COUNT (AUTO) 380 K/uL (152-348); WHITE BLOOD COUNT (AUTO) 15.6 K/uL (3.6-10.2)
[2017-06-20 16:59] LABS: CARBON DIOXIDE 35 mmol/L (21-32); CHLORIDE 113 mmol/L (98-107); GLUCOSE 159 mg/dL (74-106); POTASSIUM 3.4 mmol/L (3.5-5.1); UREA NITROGEN, BLOOD 22 mg/dL (7-18)
[2017-06-20 17:05] LABS: ALANINE AMINOTRANSFERASE 12 U/L (16-63); ALKALINE PHOSPHATASE 86 U/L (50-136); ASPARTATE AMINOTRANSFERASE 11 U/L (15-37); BILIRUBIN,DIRECT 0.1 mg/dL (0.0-0.2); BILIRUBIN,TOTAL 0.4 mg/dL (0.2-1.0)
[2017-06-20 18:00] LABS: *BILIRUBIN,URIN NEGATIVE (NEGATIVE); *BLOOD, URINE 1+ (NEGATIVE); *CLARITY,URINE SLIGHTLY CLOUDY (CLEAR); *COLOR,URINE YELLOW (YELLOW); *KETONES,URINE NEGATIVE (NEGATIVE); *UROBILINOGEN,URINE 0.2 E.U./dl (NORMAL); LEUKOCYTE ESTERASE ,URINE NEGATIVE (NEGATIVE); NITRITE, URINE NEGATIVE (NEGATIVE); UGLUCOSE NEGATIVE (NEGATIVE)
--- NOTE | 2017-06-20 18:00 | NUR ---
PERINEAL HYGIENE PROVIDED. PT TOLERATED WELL.
--- NOTE | 2017-06-20 18:06 | NUR ---
PT TRANSFERE TO FLOOR IN STABLE CONDITION. NO CHANGE IN PT STAUS
[2017-06-20 18:13] LABS: *PROTEIN,URINE 3+ (NEGATIVE)
[2017-06-20 18:15] LABS: WBC,URINE 0-3 /HPF (0-3)
[2017-06-20 18:16] LABS: COARSE GRANULAR CASTS,URINE 0-3 /LPF; MUCUS,URINE MODERATE /LPF (0-FEW); URINE AMORPHOUS URATE MODERATE /HPF
[2017-06-20 18:34] VITALS: BP 155/58
--- NOTE | 2017-06-20 18:37 | NUR ---
Received patient from ER to room 212, patient is awake, alert, non-verbal. O2 on at 2LPM via NC, saturating at 95%. IV atb Brendon running, IV site to LFA gauge 20, intact and patent. Noted with sacrum and left heel redness, photo taken and put on the chart.
--- NOTE | 2017-06-20 18:46 | NUR ---
Placed a call to Dr. Hess for admission orders
--- NOTE | 2017-06-20 19:05 | NUR ---
Received report from Am nurse. Patient sleeping during initial rounds. No s/s of pain/discomforts noted. Routine admission care done. Plan of care initiated.
[2017-06-20 20:00] VITALS: BP 153/53
[2017-06-20] MEDS ORDERED: POTASSIUM CHLORIDE 20 MEQ in IV D5 1/2 NS 1000 ML 1,000 ML IV PRN (20:00)
[2017-06-20] MEDS ORDERED: MORPHINE SULFATE 2 MG/1 ML DISP.SYRIN IV PRN (20:00)
[2017-06-20] MEDS ORDERED: DEXTROSE 50% 50 ML DISP.SYRIN IV PRN (20:00)
[2017-06-20] MEDS ORDERED: ONDANSETRON 4 MG/2 ML VIAL IV PRN (20:00)
[2017-06-20] MEDS ORDERED: ACETAMINOPHEN 650 MG SUPP.RECT RC PRN (20:00)
[2017-06-20] MEDS ORDERED: MORPHINE SULFATE 4 MG/1 ML DISP.SYRIN IV PRN (20:45)
--- NOTE | 2017-06-20 20:49 | NUR ---
Clinical pharmacy note-Vancomycin dosing per pharmacy Subjective: To start Vancomycin dosing on this patient for suspected infection(leukocytosis) Objective: BUN 22 Scr 1.0 WBC 15.6 Temp 99.8 Ht 172.72cm Wt 63.5kg Assessment/Plan: Patient had 1 gram in ER at 1713. Will continue 1 gram Vancomycin IVPB every 22hrs(second dose tomorrow at 1500) and draw trough by 4th dose(not ordered yet) for expected trough around 15. Will monitor daily.
[2017-06-20] MEDS: Z GUARD REMEDY PASTE 57 GM TUBE TOP SCH (21:49)
[2017-06-20] MEDS: PIPERACILLIN/TAZOBACTAM/D5W 3.375 G in PREMIXED 1 EACH IV SCH (21:49)
[2017-06-20] MEDS ORDERED: ENALAPRILAT DIHYDRATE 1.25 MG/1 ML VIAL IV ONE (22:33)
[2017-06-20] MEDS: ENALAPRILAT DIHYDRATE INJ 2.5 MG in IV NORMAL SALINE 50 ML IV PRN (22:37)
[2017-06-20] MEDS: BLOOD SUGAR DIAGNOSTIC 1 EACH STRIP VI SCH (23:28)
[2017-06-20] MEDS: INSULIN REGULAR, HUMAN 300 UNIT/3 ML VIAL SQ PRN (23:29)
[2017-06-21] VITALS (8 sets, daily range): BP systolic 137–175; BP diastolic 58–75
[2017-06-21] MEDS ORDERED: ENALAPRILAT DIHYDRATE 1.25 MG/1 ML VIAL IV ONE (05:17)
[2017-06-21] MEDS: PIPERACILLIN/TAZOBACTAM/D5W 3.375 G in PREMIXED 1 EACH IV SCH ×3 (05:22→22:15)
[2017-06-21] MEDS: BLOOD SUGAR DIAGNOSTIC 1 EACH STRIP VI SCH ×3 (05:30→23:40)
[2017-06-21] MEDS: INSULIN REGULAR, HUMAN 300 UNIT/3 ML VIAL SQ PRN ×3 (05:31→23:41)
[2017-06-21] MEDS: ENALAPRILAT DIHYDRATE INJ 2.5 MG in IV NORMAL SALINE 50 ML IV PRN (05:55)
[2017-06-21 06:36] LABS: BASOPHILS # (AUTO) 0.2 K/uL (0.0-8.0); BASOPHILS % (AUTO) 0.9 % (0.0-2.0); EOSINOPHILS # (AUTO) 0.1 K/uL (0.0-0.7); EOSINOPHILS % (AUTO) 0.4 % (0.0-7.0); HEMOGLOBIN 10.1 g/dL (12.5-16.3); LYMPHOCYTES # (AUTO) 1.3 K/uL (20.0-40.0); LYMPHOCYTES % (AUTO) 7.3 % (20.5-51.5); MEAN CORPUSCULAR HEMOGLOBIN 29.6 uug (23.8-33.4); MEAN CORPUSCULAR HGB CONC 32 g/dL (32.5-36.3); MEAN CORPUSCULAR VOLUME 92.2 fL (73.0-96.2); MONOCYTES # (AUTO) 0.7 K/uL (2.0-10.0); MONOCYTES % (AUTO) 4.3 % (0.0-11.0); NEUTROPHILS # (AUTO) 15.1 K/uL (1.8-8.9); NEUTROPHILS % (AUTO) 87.1 % (38.5-71.5); PLATELET COUNT (AUTO) 411 K/uL (152-348); RED BLOOD CELL COUNT(AUTO) 3.43 MIL/uL (4.06-5.63); WHITE BLOOD COUNT (AUTO) 17.4 K/uL (3.6-10.2)
[2017-06-21 06:37] LABS: HEMATOCRIT 31.6 % (36.7-47.1)
[2017-06-21 06:54] LABS: IRON, SERUM 14 ug/dL (50-175)
[2017-06-21 06:58] LABS: ALANINE AMINOTRANSFERASE 10 U/L (16-63); ALKALINE PHOSPHATASE 80 U/L (50-136); ASPARTATE AMINOTRANSFERASE 13 U/L (15-37); BILIRUBIN,TOTAL 0.4 mg/dL (0.2-1.0); CARBON DIOXIDE 31 mmol/L (21-32); CHLORIDE 112 mmol/L (98-107); CHOLESTEROL 110 mg/dL (<200); GLUCOSE 180 mg/dL (74-106); HDL CHOLESTEROL 54 mg/dL (40-60); POTASSIUM 3.4 mmol/L (3.5-5.1); TOTAL PROTEIN, SERUM 7.3 g/dL (6.4-8.2); TRIGLYCERIDES 83 MG/DL (30-150); UREA NITROGEN, BLOOD 20 mg/dL (7-18)
[2017-06-21 07:22] LABS: THYROID STIMULATING HORMONE 1.882 mIU/mL (0.358-3.740)
--- NOTE | 2017-06-21 07:45 | NUR ---
Received pt sleeping in bed with no apparent s/s of SOB, pain, distress or discomfort. Bed at lowest position for safety and call light within reach for assistance
--- NOTE | 2017-06-21 07:58 | NUR ---
Chest x-rays completed by quality systems technician
[2017-06-21] MEDS: Z GUARD REMEDY PASTE 57 GM TUBE TOP SCH ×2 (08:10→20:39)
[2017-06-21] MEDS ORDERED: PANTOPRAZOLE SODIUM 40 MG VIAL IV SCH (09:00)
[2017-06-21] MEDS ORDERED: FUROSEMIDE 20 MG/2 ML VIAL IV ONE (10:30)
[2017-06-21] MEDS: AMLODIPINE 5 MG TABLET PO SCH ×2 (10:37→20:38)
[2017-06-21] MEDS: FUROSEMIDE 20 MG/2 ML VIAL IV SCH (10:38)
[2017-06-21] MEDS ORDERED: INSULIN REGULAR, HUMAN 300 UNIT/3 ML VIAL SQ PRN ×2 (10:45→13:15)
[2017-06-21] MEDS ORDERED: VALSARTAN 80 MG TABLET PO SCH (10:45)
[2017-06-21] MEDS ORDERED: DEXTROSE 50% 50 ML DISP.SYRIN IV PRN ×3 (10:45→13:15)
[2017-06-21] MEDS: POTASSIUM CHLORIDE 50 ML IV SCH ×2 (11:11→12:59)
[2017-06-21] MEDS ORDERED: ALBUTEROL SULFATE 2.5 MG/3 ML NEBU NEB PRN (11:15)
[2017-06-21] MEDS ORDERED: IPRATROPIUM BROMIDE 0.5 MG/2.5 ML NEBU NEB PRN (11:15)
[2017-06-21] MEDS ORDERED: BLOOD SUGAR DIAGNOSTIC 1 EACH STRIP VI SCH ×2 (11:30→18:00)
--- NOTE | 2017-06-21 11:31 | NUR ---
Speech therapist recommendations:to keep pt NPO but if pt is going to start eating puree diet is recommended and pt needs to be up in chair for B-L-D. [place] thick liquids are also recommended and have been added to modify diet. Pt is compliant with medication as long as they are crushed, pt is noted to spit out medication if they are whole. Tylenol given for a temp of 99.2
[2017-06-21] MEDS ORDERED: POTASSIUM CHLORIDE 20 MEQ in IV D5 1/2 NS 1000 ML 1,000 ML IV PRN (12:45)
--- NOTE | 2017-06-21 13:41 | NUR ---
Clinical pharmacy note-Vancomycin dosing per pharmacy Subjective: To continue Vancomycin dosing on this patient for suspected infection(leukocytosis) Objective: BUN 20 Scr 1.0 WBC 17.4 Temp 98.2 Ht 172.72cm Wt 63.5kg Assessment/Plan: Will continue 1 gram Vancomycin IVPB every 22hrs(second dosetoday at 1500) and draw trough by 4th dose(not ordered yet) for expected trough around 15. Will monitor daily.
[2017-06-21] MEDS: IPRATROPIUM BROMIDE 0.5 MG/2.5 ML NEBU NEB SCH ×2 (13:43→19:05)
[2017-06-21] MEDS: ALBUTEROL SULFATE 2.5 MG/3 ML NEBU NEB SCH ×2 (13:43→19:05)
[2017-06-21] MEDS: VANCOMYCIN IV 1 G in PREMIXED 0 EACH IV SCH (15:49)
[2017-06-21] MEDS ORDERED: Medication Not On Formulary EA (Saccharomyces Boulardii (Probiotic) 250 MG) PO SCH (17:00)
--- NOTE | 2017-06-21 17:14 | NUR ---
Pt has being sleeping most of the day. No apparent s/s of SOB, pain, distress or discomfort. Pt is NPO until tomorrow and further evaluation and assessment will be done to see if pt can start back on a puree diet with nectar thick liquids. Pt is noted to be removing his nasal cannula and several attempts made to replace it but pt keeps removing nasal cannula. Last BP at 1600HRS was 147/69 HR78. DVT pumps in place. Sykes catheter noted with clear and yellow urine
--- NOTE | 2017-06-21 18:47 | NUR ---
Pt is sleeping at this time, no apparent s/s of SOB, pain, distress or discomfort. Pt is NPO until tomorrow. DVT pumps in place, O2 via NC at 3L, KCl in D5 1/2NS running at 60cc/hr. Bed at lowest position for safety and call light within reach for assistance. Safe environment kept at all times.
[2017-06-21] MEDS: FERROUS SULFATE 325 MG TABEC PO SCH (20:38)
[2017-06-21] MEDS: TERAZOSIN 5 MG CAPSULE PO SCH (20:38)
[2017-06-21] MEDS: LACTOBACILLUS RHAMNOSUS GG 1 EACH CAPSULE PO SCH (20:38)
[2017-06-22] VITALS (7 sets, daily range): BP systolic 145–177; BP diastolic 57–86
[2017-06-22] MEDS: hydrALAZINE HCL 20 MG/1 ML VIAL IV PRN ×3 (00:13→16:15)
[2017-06-22] MEDS: IPRATROPIUM BROMIDE 0.5 MG/2.5 ML NEBU NEB SCH ×4 (00:39→18:34)
[2017-06-22] MEDS: ALBUTEROL SULFATE 2.5 MG/3 ML NEBU NEB SCH ×4 (00:39→18:34)
[2017-06-22] MEDS: LORAZEPAM 2 MG/1 ML VIAL IV PRN (02:08)
--- NOTE | 2017-06-22 05:35 | NUR ---
PT CONTINUALLY PULLING HIS OXYGEN OFF, ATTEMPTING TO PULL AT QUINTANILLA CATHETER AND REMOVE TELE ELECTRODES. AT THIS TIME PT HAS PULLED OUT HIS IV LINE. ATTEMPTED TO INSERT X2 BUT UNSUCCESSFUL PATIENT IS VERY COMBATIVE. ATIVAN ADMINISTERED EARLIER DID NOT AFFECT THIS PATIENT. ANOTHER NURSE ATTEMPTED TO REINSERT IV LINE BUT TO NO AVAIL. WILL HAVE ER NURSE ATTEMPT TO INSERT IV LINE. Addendum: 06/22/17 at 0628 by CHRISTIANE JANE RN IV LINE INSERTED IN LAC #20. PATIENT RESTING AT THIS TIME. ORAL CARE DONE.
[2017-06-22] MEDS: PIPERACILLIN/TAZOBACTAM/D5W 3.375 G in PREMIXED 1 EACH IV SCH ×3 (05:54→21:16)
[2017-06-22] MEDS: PANTOPRAZOLE SODIUM 40 MG VIAL IV SCH (06:02)
[2017-06-22] MEDS: BLOOD SUGAR DIAGNOSTIC 1 EACH STRIP VI SCH ×3 (06:06→17:21)
[2017-06-22] MEDS: INSULIN REGULAR, HUMAN 300 UNIT/3 ML VIAL SQ PRN ×3 (06:07→17:24)
[2017-06-22] MEDS: LEVOTHYROXINE SODIUM 25 MCG TABLET PO SCH (06:13)
[2017-06-22 06:39] LABS: BASOPHILS # (AUTO) 0.2 K/uL (0.0-8.0); BASOPHILS % (AUTO) 1.2 % (0.0-2.0); EOSINOPHILS # (AUTO) 0.1 K/uL (0.0-0.7); EOSINOPHILS % (AUTO) 0.8 % (0.0-7.0); HEMATOCRIT 31.9 % (36.7-47.1); HEMOGLOBIN 10.4 g/dL (12.5-16.3); LYMPHOCYTES # (AUTO) 1.6 K/uL (20.0-40.0); LYMPHOCYTES % (AUTO) 10.3 % (20.5-51.5); MEAN CORPUSCULAR HEMOGLOBIN 30.3 uug (23.8-33.4); MEAN CORPUSCULAR HGB CONC 33 g/dL (32.5-36.3); MEAN CORPUSCULAR VOLUME 92.5 fL (73.0-96.2); MONOCYTES # (AUTO) 0.7 K/uL (2.0-10.0); MONOCYTES % (AUTO) 4.6 % (0.0-11.0); NEUTROPHILS # (AUTO) 12.6 K/uL (1.8-8.9); NEUTROPHILS % (AUTO) 83.1 % (38.5-71.5); PLATELET COUNT (AUTO) 398 K/uL (152-348); RED BLOOD CELL COUNT(AUTO) 3.44 MIL/uL (4.06-5.63); WHITE BLOOD COUNT (AUTO) 15.1 K/uL (3.6-10.2)
[2017-06-22 07:12] LABS: ALANINE AMINOTRANSFERASE 11 U/L (16-63); ALKALINE PHOSPHATASE 80 U/L (50-136); ASPARTATE AMINOTRANSFERASE 19 U/L (15-37); BILIRUBIN,TOTAL 0.4 mg/dL (0.2-1.0); CARBON DIOXIDE 30 mmol/L (21-32); CHLORIDE 112 mmol/L (98-107); GLUCOSE 148 mg/dL (74-106); PHOSPHOROUS 3.6 mg/dL (2.5-4.9); POTASSIUM 4.3 mmol/L (3.5-5.1); TOTAL PROTEIN, SERUM 6.9 g/dL (6.4-8.2); UREA NITROGEN, BLOOD 22 mg/dL (7-18)
[2017-06-22] MEDS: FUROSEMIDE 20 MG/2 ML VIAL IV SCH (08:43)
[2017-06-22] MEDS: FERROUS SULFATE 325 MG TABEC PO SCH ×2 (09:00→21:00)
[2017-06-22] MEDS: AMLODIPINE 5 MG TABLET PO SCH ×2 (09:00→21:00)
[2017-06-22] MEDS: LACTOBACILLUS RHAMNOSUS GG 1 EACH CAPSULE PO SCH ×2 (09:00→21:00)
[2017-06-22] MEDS ORDERED: TERAZOSIN HCL PO SCH (09:00)
[2017-06-22] MEDS ORDERED: FUROSEMIDE 20 MG TABLET PO SCH (09:00)
[2017-06-22] MEDS: Z GUARD REMEDY PASTE 57 GM TUBE TOP SCH ×2 (11:42→21:06)
--- NOTE | 2017-06-22 11:49 | NUR ---
Nutrition consult received for "sacral and left heel bluish discoloration". Chart reviewed. Patient admitted for PNA. Patient with sacrum redness, no pressure wounds were reported at this time. MD and CSM CONSULTANT notes showing no documentation of open wounds or pressure ulcers. Patient is currently NPO, awaiting PO trials and ST recs. Full nutrition assessment will be completed per nutrition policy. Addendum: 06/22/17 at [address] Amended: Links added.
[2017-06-22] MEDS: VANCOMYCIN IV 1 G in PREMIXED 0 EACH IV SCH (12:01)
--- NOTE | 2017-06-22 14:45 | NUR ---
Clinical pharmacy note-Vancomycin dosing per pharmacy Subjective: To continue Vancomycin dosing on this patient for suspected infection(leukocytosis) Objective: BUN 22 Scr 1.0 WBC 15.1 Temp 98.5 Ht 172.72cm Wt 63.5kg Assessment/Plan: Will continue 1 gram Vancomycin IVPB every 22hrs (third dose today at 1300) and draw trough by 4th dose(due tomorrow at 1030) for expected trough around 15. Will check level tomorrow and adjust as needed. Will monitor daily.
[2017-06-22] MEDS: VALSARTAN 80 MG TABLET PO SCH ×2 (17:00→21:00)
--- NOTE | 2017-06-22 18:00 | NUR ---
Pt KEPT NPO through out shift. Pt is in no acute distress. Pt suctioned multiple times and got greenish thick sputum and sputum specimen sent to lab. Pt is in no acute distress.
[2017-06-22] MEDS: TERAZOSIN 5 MG CAPSULE PO SCH (21:00)
[2017-06-22] MEDS: IV D5W 1000ML 1,000 ML IV PRN (21:16)
[2017-06-23] VITALS (7 sets, daily range): BP systolic 125–178; BP diastolic 25–88
[2017-06-23] MEDS: BLOOD SUGAR DIAGNOSTIC 1 EACH STRIP VI SCH ×5 (00:42→23:17)
[2017-06-23] MEDS: INSULIN REGULAR, HUMAN 300 UNIT/3 ML VIAL SQ PRN ×5 (00:44→23:20)
[2017-06-23] MEDS: ALBUTEROL SULFATE 2.5 MG/3 ML NEBU NEB SCH ×4 (01:29→19:33)
[2017-06-23] MEDS: IPRATROPIUM BROMIDE 0.5 MG/2.5 ML NEBU NEB SCH ×4 (01:29→19:33)
[2017-06-23] MEDS: PIPERACILLIN/TAZOBACTAM/D5W 3.375 G in PREMIXED 1 EACH IV SCH ×3 (05:41→21:26)
[2017-06-23] MEDS: LEVOTHYROXINE SODIUM 25 MCG TABLET PO SCH (06:08)
[2017-06-23] MEDS: PANTOPRAZOLE SODIUM 40 MG VIAL IV SCH (06:08)
[2017-06-23 07:37] LABS: ALANINE AMINOTRANSFERASE 8 U/L (16-63); ALKALINE PHOSPHATASE 72 U/L (50-136); ASPARTATE AMINOTRANSFERASE 12 U/L (15-37); BILIRUBIN,TOTAL 0.6 mg/dL (0.2-1.0); CARBON DIOXIDE 31 mmol/L (21-32); CHLORIDE 110 mmol/L (98-107); CREATININE 1.3 mg/dL (0.6-1.3); GLUCOSE 209 mg/dL (74-106); POTASSIUM 3.2 mmol/L (3.5-5.1); UREA NITROGEN, BLOOD 23 mg/dL (7-18)
[2017-06-23 07:41] LABS: BASOPHILS # (AUTO) 0.2 K/uL (0.0-8.0); BASOPHILS % (AUTO) 1.2 % (0.0-2.0); EOSINOPHILS # (AUTO) 0.1 K/uL (0.0-0.7); EOSINOPHILS % (AUTO) 0.4 % (0.0-7.0); HEMATOCRIT 31.5 % (36.7-47.1); HEMOGLOBIN 10.3 g/dL (12.5-16.3); LYMPHOCYTES # (AUTO) 1.5 K/uL (20.0-40.0); LYMPHOCYTES % (AUTO) 9.4 % (20.5-51.5); MEAN CORPUSCULAR HEMOGLOBIN 30.1 uug (23.8-33.4); MEAN CORPUSCULAR HGB CONC 33 g/dL (32.5-36.3); MEAN CORPUSCULAR VOLUME 92.3 fL (73.0-96.2); MONOCYTES # (AUTO) 0.9 K/uL (2.0-10.0); MONOCYTES % (AUTO) 5.8 % (0.0-11.0); NEUTROPHILS # (AUTO) 13.5 K/uL (1.8-8.9); NEUTROPHILS % (AUTO) 83.2 % (38.5-71.5); PLATELET COUNT (AUTO) 440 K/uL (152-348); RED BLOOD CELL COUNT(AUTO) 3.41 MIL/uL (4.06-5.63); WHITE BLOOD COUNT (AUTO) 16.2 K/uL (3.6-10.2)
[2017-06-23] MEDS: LACTOBACILLUS RHAMNOSUS GG 1 EACH CAPSULE PO SCH ×2 (08:21→21:00)
[2017-06-23] MEDS: FERROUS SULFATE 325 MG TABEC PO SCH ×2 (08:22→21:00)
[2017-06-23] MEDS: AMLODIPINE 5 MG TABLET PO SCH ×2 (08:22→21:00)
[2017-06-23] MEDS: VALSARTAN 80 MG TABLET PO SCH ×2 (08:22→21:00)
[2017-06-23] MEDS: FUROSEMIDE 20 MG/2 ML VIAL IV SCH (08:30)
[2017-06-23] MEDS: Z GUARD REMEDY PASTE 57 GM TUBE TOP SCH ×2 (09:00→21:26)
[2017-06-23] MEDS: POTASSIUM CHLORIDE 50 ML IV SCH ×2 (11:30→13:27)
[2017-06-23] MEDS: VANCOMYCIN IV 1 G in PREMIXED 0 EACH IV SCH (11:30)
--- NOTE | 2017-06-23 12:08 | NUR ---
Clinical pharmacy note-Vancomycin dosing per pharmacy Subjective: To continue Vancomycin dosing on this patient for Probable HCAP vs. Healthcare associated bronchitis, sepsis (per ID note) Objective: BUN 23 Scr 1.3 WBC 16.2 Temp 97.6 Vanco trough level: 13.7 (06/23 at 1030) Ht 172.72cm Wt 63.5kg Assessment/Plan: Since srcr has increased & vanco trough level is 13.7 mcg/ml, will continue same dose of vanco 1 gram Vancomycin IVPB every 22hrs for now. Plan to check srcr in am & adjust the dose if needed. Will monitor daily.
[2017-06-23] MEDS: ENALAPRILAT DIHYDRATE INJ 2.5 MG in IV NORMAL SALINE 50 ML IV PRN (12:43)
--- NOTE | 2017-06-23 15:04 | NUR ---
WOUND CARE CONSULT: PT PRESENTS WITH SACRAL SCARRING AND DIFFUSE AREA OF PINK DISCOLORATION TO LEFT PLANTAR HEEL, PRESENT ON ADMISSION. RECOMMENDATIONS MADE FOR SKIN PROTECTION AND DISCUSSED WITH NURSING STAFF. CURRENT JENNIFER SCORE IS 13. WILL SEE PRN. MCINTYRE IN AGREEMENT WITH PLAN OF CARE.
[2017-06-23] MEDS: hydrALAZINE HCL 20 MG/1 ML VIAL IV PRN (17:03)
[2017-06-23] MEDS ORDERED: BARIUM SULFATE 148 GM SUSP.RECON PO ONE (18:00)
[2017-06-23] MEDS ORDERED: BARIUM SULFATE 240 ML ORAL.SUSP PO ONE (18:00)
--- NOTE | 2017-06-23 20:10 | NUR ---
RECEIVED PT'S VERY CONFUSED,NON-COMPLIANT WITH CARE AT THIS TIME.PER JULIÁN/RT STATED THAT PT'S REALLY COMBATIVE AND NOT ALLOW HIM TO GIVE HHN RX AND SUCTION AT THIS TIME;EDUCATED TO PT BUT HE'S STILL COMBATIVE;ATIVAN 05 MG IVP X1 AT THIS TIME;10 MINUTES LATER,HE'S ABLE TO SUCTION AND CLEAR AIRWAY;PT'S BREATHING'S GETTING BETTER,NO SOB NOTED.O2 SAT'S 99% WITH O2 NC 3 LPM.PM CARE TO PT AT THIS TIME;REPOSITION AND KEPT COMFORT.KEPT NPO AND MAINTAINED IVF MD'S ORDER.NOTED. AT 2100;KIMBERLY PEREIRA(PT'S GRAND-DAUGHTER CALLED,UNDATED THE PLAN OF CARE TO HER;SHE VERBALIZED UNDERSTANDING AND COOPERATIVE,PER KIMBERLY STATED THAT IF 'S AVAILABLE PLEASE CALL HER TOMORROW ,WILL ENDORSE TO CHRISTIANA/ESTIMATING ENGINEER AND AM NURSE TOMORROW TO KNOW ABOUT IT.
[2017-06-23] MEDS: LORAZEPAM 2 MG/1 ML VIAL IV PRN (20:13)
[2017-06-23] MEDS: TERAZOSIN 5 MG CAPSULE PO SCH (21:00)
[2017-06-23] MEDS: IV D5W 1000ML 1,000 ML IV PRN (21:31)
[2017-06-24] MEDS: ALBUTEROL SULFATE 2.5 MG/3 ML NEBU NEB SCH ×4 (01:03→19:19)
[2017-06-24] MEDS: IPRATROPIUM BROMIDE 0.5 MG/2.5 ML NEBU NEB SCH ×4 (01:03→19:20)
[2017-06-24 04:00] VITALS: BP 134/47
[2017-06-24] MEDS: BLOOD SUGAR DIAGNOSTIC 1 EACH STRIP VI SCH ×3 (05:14→17:19)
[2017-06-24] MEDS: PIPERACILLIN/TAZOBACTAM/D5W 3.375 G in PREMIXED 1 EACH IV SCH ×3 (05:14→22:05)
[2017-06-24] MEDS: INSULIN REGULAR, HUMAN 300 UNIT/3 ML VIAL SQ PRN ×4 (05:16→23:59)
[2017-06-24] MEDS: LEVOTHYROXINE SODIUM 25 MCG TABLET PO SCH (06:13)
[2017-06-24] MEDS: PANTOPRAZOLE SODIUM 40 MG VIAL IV SCH (06:13)
--- NOTE | 2017-06-24 06:20 | NUR ---
Assisted pt for am care on bed;pt's cooperative at this time,still dry cough sometimes on/off but no sob noted.still kept NPO as order.maintained IVF as MD's order.F/C to gravity was intact.closely monitoring to pt.bed alarm's on.pt slept ~ 8 hours in the shift.
[2017-06-24 08:14] LABS: BASOPHILS # (AUTO) 0.1 K/uL (0.0-8.0); BASOPHILS % (AUTO) 0.9 % (0.0-2.0); EOSINOPHILS # (AUTO) 0.2 K/uL (0.0-0.7); EOSINOPHILS % (AUTO) 1.1 % (0.0-7.0); HEMATOCRIT 28.9 % (36.7-47.1); HEMOGLOBIN 9.4 g/dL (12.5-16.3); LYMPHOCYTES # (AUTO) 1.4 K/uL (20.0-40.0); LYMPHOCYTES % (AUTO) 9.4 % (20.5-51.5); MEAN CORPUSCULAR HEMOGLOBIN 29.7 uug (23.8-33.4); MEAN CORPUSCULAR HGB CONC 33 g/dL (32.5-36.3); MEAN CORPUSCULAR VOLUME 91.5 fL (73.0-96.2); MONOCYTES % (AUTO) 6.8 % (0.0-11.0); NEUTROPHILS # (AUTO) 12.5 K/uL (1.8-8.9); NEUTROPHILS % (AUTO) 81.8 % (38.5-71.5); PLATELET COUNT (AUTO) 385 K/uL (152-348); RED BLOOD CELL COUNT(AUTO) 3.16 MIL/uL (4.06-5.63); WHITE BLOOD COUNT (AUTO) 15.3 K/uL (3.6-10.2)
[2017-06-24 08:54] LABS: ALANINE AMINOTRANSFERASE 8 U/L (16-63); ALKALINE PHOSPHATASE 78 U/L (50-136); ASPARTATE AMINOTRANSFERASE 10 U/L (15-37); BILIRUBIN,TOTAL 0.5 mg/dL (0.2-1.0); CARBON DIOXIDE 34 mmol/L (21-32); CHLORIDE 107 mmol/L (98-107); CREATININE 1.5 mg/dL (0.6-1.3); GLUCOSE 196 mg/dL (74-106); MAGNESIUM 1.9 mg/dL (1.8-2.4); PHOSPHOROUS 4.4 mg/dL (2.5-4.9); POTASSIUM 3.5 mmol/L (3.5-5.1); TOTAL PROTEIN, SERUM 6.8 g/dL (6.4-8.2); UREA NITROGEN, BLOOD 23 mg/dL (7-18)
[2017-06-24] MEDS: FUROSEMIDE 20 MG/2 ML VIAL IV SCH (08:58)
[2017-06-24] MEDS: VANCOMYCIN IV 1 G in PREMIXED 0 EACH IV SCH (08:58)
[2017-06-24] MEDS: AMLODIPINE 5 MG TABLET PO SCH (09:00)
[2017-06-24] MEDS: VALSARTAN 80 MG TABLET PO SCH (09:00)
[2017-06-24] MEDS: FERROUS SULFATE 325 MG TABEC PO SCH (09:00)
[2017-06-24] MEDS: LACTOBACILLUS RHAMNOSUS GG 1 EACH CAPSULE PO SCH (09:00)
[2017-06-24] MEDS: Z GUARD REMEDY PASTE 57 GM TUBE TOP SCH ×2 (09:01→21:57)
[2017-06-24 11:02] VITALS: BP 148/47
--- NOTE | 2017-06-24 13:30 | NUR ---
NG TUBE INSERTED MARKED AT 50. MD NOTIFIED, X RAY ORDERED. CONTINUE TO MONITOR.
--- NOTE | 2017-06-24 14:15 | NUR ---
Clinical pharmacy note-Vancomycin dosing per pharmacy Subjective: To continue Vancomycin dosing on this patient for Probable HCAP vs. Healthcare associated bronchitis, sepsis (per ID note) Objective: BUN 23 Scr 1.5 WBC 15.3 Temp 98.6 Vanco trough level: 13.7 (06/23 at 1030) Ht 172.72cm Wt 63.5kg Assessment/Plan: Will continue same dose of vanco 1 gram IVPB every 22hrs for now. Plan to check vanco trough level tomorrow at 0630am & adjust the dose if needed. Will monitor daily.
--- NOTE | 2017-06-24 14:20 | NUR ---
NG MARKING AT 50 AND ADVANCED TO 56 PER RECOMMENDATION TO ADVANCE TUBE 6CM. CURRENT MARKING 56.
[2017-06-24 15:11] VITALS: BP 123/52
[2017-06-24] MEDS ORDERED: GLUCERNA 1.2 1000ML LIQUID GT PRN (17:00)
[2017-06-24] MEDS: IV D5W 1000ML 1,000 ML IV PRN (17:05)
--- NOTE | 2017-06-24 18:05 | NUR ---
SPOKE TO PT'S GRAND DAUGHTER ON THE PHONE. DAUGHTER DID NOT GIVE CONSENT AT THIS TIME. SHE STATED SHE NEEDED TO TALK TO HER MOTHER ABOUT THE PROCEDURE. WILL ENDORSE TO YARD ATTENDANT.
--- NOTE | 2017-06-24 18:28 | NUR ---
PT OBSERVED RESTING IN BED NO SIGNS OF RESPIRATORY DISTRESS, MITTEN ON HANDS, NG TUBE IN PLACE MARKED 56, CONTINOUS GLUCERNA1.2 FEEDING AT 65CC/HR TOLERATED BY PT. PT IS TOLERATING FEEDING AT THIS TIME. CONTINUE TO MONITOR.
--- NOTE | 2017-06-24 19:30 | NUR ---
PT IN ROOM ALERT AWAKE IN NO ACUTE DISTRESS. CONTINUING TUBE FEEDING WITH GLUCERNA 65ML/HR AND TOLERATING WELL. ON OXYGEN CONTINUOUS AT 2L/MIN VIA N/C. PT REPOSITIONED AND WILL CONTINUE TO MONITOR.
[2017-06-24 20:00] VITALS: BP 130/52
[2017-06-24] MEDS ORDERED: FERROUS SULFATE 300 MG/5 ML LIQUID UDC NG SCH (21:00)
[2017-06-24] MEDS: TERAZOSIN 5 MG CAPSULE NG SCH (21:52)
[2017-06-24] MEDS: FERROUS SULFATE 300 MG/5 ML LIQUID UDC NG SCH (21:52)
[2017-06-24] MEDS: LACTOBACILLUS RHAMNOSUS GG 1 EACH CAPSULE NG SCH (21:52)
[2017-06-24] MEDS: VALSARTAN 80 MG TABLET NG SCH (21:53)
[2017-06-24] MEDS: AMLODIPINE 5 MG TABLET NG SCH (21:53)
--- NOTE | 2017-06-24 22:00 | NUR ---
PT'S GRAND DAUGHTER CHELSY STATED SHE SPOKE WITH HER MOM AND GAVE CONSENT TO HAVE THE UPCOMING PROCEDURE DONE FOR EGD WITH PEG PLACEMENT. NOTED AND CARRIED OUT.
[2017-06-25] MEDS: BLOOD SUGAR DIAGNOSTIC 1 EACH STRIP VI SCH ×4 (00:05→17:57)
[2017-06-25] MEDS: IPRATROPIUM BROMIDE 0.5 MG/2.5 ML NEBU NEB SCH ×4 (01:08→19:31)
[2017-06-25] MEDS: ALBUTEROL SULFATE 2.5 MG/3 ML NEBU NEB SCH ×4 (01:08→19:32)
[2017-06-25 04:00] VITALS: BP 107/45
[2017-06-25] MEDS: PIPERACILLIN/TAZOBACTAM/D5W 3.375 G in PREMIXED 1 EACH IV SCH ×3 (05:00→21:00)
[2017-06-25] MEDS: INSULIN REGULAR, HUMAN 300 UNIT/3 ML VIAL SQ PRN ×2 (05:09→11:59)
--- NOTE | 2017-06-25 06:00 | NUR ---
PT ABLE TO TOLERATE TUBE FEEDING VIA NG WELL. PT STILL PRESENT WITH SLIGHT COMBATIVENESS WHEN REPOSITIONED. RIGHT MITTEN IN PLACE. NO REACTION TO RECENT ATB IV ZOSYN. PHARMACY AWARE OF CANCELLED VANCO TROUGH PER MD ORDER. WILL CONTINUE TO MONITOR. V/S ARE WNL. NO S/S OF HYPER/HYPOGLYCEMIA. HOB MAINTAINED AT 30 DEGREES WITH ORAL CARE AND SUCTION AT BEDSIDE.
[2017-06-25] MEDS: PANTOPRAZOLE SODIUM 40 MG VIAL IV SCH (06:17)
[2017-06-25] MEDS: LEVOTHYROXINE SODIUM 25 MCG TABLET NG SCH (06:17)
[2017-06-25 07:01] LABS: CARBON DIOXIDE 32 mmol/L (21-32); CHLORIDE 105 mmol/L (98-107); CREATININE 1.6 mg/dL (0.6-1.3); GLUCOSE 215 mg/dL (74-106); POTASSIUM 3.3 mmol/L (3.5-5.1); UREA NITROGEN, BLOOD 28 mg/dL (7-18)
[2017-06-25 07:40] LABS: BASOPHILS # (AUTO) 0.1 K/uL (0.0-8.0); BASOPHILS % (AUTO) 0.5 % (0.0-2.0); EOSINOPHILS # (AUTO) 0.2 K/uL (0.0-0.7); EOSINOPHILS % (AUTO) 1.9 % (0.0-7.0); HEMATOCRIT 26.3 % (36.7-47.1); HEMOGLOBIN 8.6 g/dL (12.5-16.3); LYMPHOCYTES # (AUTO) 1.1 K/uL (20.0-40.0); LYMPHOCYTES % (AUTO) 9.6 % (20.5-51.5); MEAN CORPUSCULAR HEMOGLOBIN 30.1 uug (23.8-33.4); MEAN CORPUSCULAR HGB CONC 33 g/dL (32.5-36.3); MEAN CORPUSCULAR VOLUME 92.4 fL (73.0-96.2); MONOCYTES # (AUTO) 0.8 K/uL (2.0-10.0); MONOCYTES % (AUTO) 6.4 % (0.0-11.0); NEUTROPHILS # (AUTO) 9.6 K/uL (1.8-8.9); NEUTROPHILS % (AUTO) 81.6 % (38.5-71.5); PLATELET COUNT (AUTO) 329 K/uL (152-348); RED BLOOD CELL COUNT(AUTO) 2.84 MIL/uL (4.06-5.63); WHITE BLOOD COUNT (AUTO) 11.8 K/uL (3.6-10.2)
[2017-06-25] MEDS: FUROSEMIDE 20 MG/2 ML VIAL IV SCH (08:36)
[2017-06-25] MEDS: LACTOBACILLUS RHAMNOSUS GG 1 EACH CAPSULE NG SCH ×2 (08:36→20:54)
[2017-06-25] MEDS: VALSARTAN 80 MG TABLET NG SCH ×2 (08:37→20:53)
[2017-06-25] MEDS: FERROUS SULFATE 300 MG/5 ML LIQUID UDC NG SCH ×2 (08:40→20:54)
[2017-06-25] MEDS: AMLODIPINE 5 MG TABLET NG SCH ×2 (08:40→20:54)
[2017-06-25] MEDS: Z GUARD REMEDY PASTE 57 GM TUBE TOP SCH ×2 (08:41→20:54)
--- NOTE | 2017-06-25 10:33 | NUR ---
Patient noted resting in bed with eyes closed, NG tube noted, Tube feeding stopped due to patients NPO status and scheduled EGD, no facial cues of pain noted, no signs of distress
[2017-06-25 11:09] VITALS: BP 125/58
[2017-06-25] MEDS ORDERED: POTASSIUM CHLORIDE 50 ML IV SCH (12:00)
[2017-06-25 15:12] VITALS: BP 125/58
--- NOTE | 2017-06-25 19:30 | NUR ---
nsg: pt received awake but confused. lungs sound with crackles, suctioned nasally prn. combative, restraint to prevent ngt and O2 fr being pulled out. TF off. on cont ivf with d5ns at 60ml/hr via iv on LFA. f/c draining yellow urine. on 1st step mattress. dvt pumps in place. bed alarm on. on fall, aspiration precaution. cont to monitor.
[2017-06-25 19:43] VITALS: BP 145/64
[2017-06-25] MEDS: TERAZOSIN 5 MG CAPSULE NG SCH (20:53)
--- NOTE | 2017-06-25 22:30 | NUR ---
shylag: endorsed care to ANDRES Mclain.
--- NOTE | 2017-06-25 22:45 | NUR ---
RECEIVED PT FROM FAYE CAMPOS, PT IS IN NO ACUTE DISTRESS, NG TUBE ON HOLD. MITTENS ARE ON BILATERAL HANDS. ALL NEEDS MET, SAFETY MEASURES ARE IN PLACE, BED ALARM IS ON.
[2017-06-26] MEDS: ALBUTEROL SULFATE 2.5 MG/3 ML NEBU NEB SCH ×4 (01:17→19:23)
[2017-06-26] MEDS: IPRATROPIUM BROMIDE 0.5 MG/2.5 ML NEBU NEB SCH ×4 (01:17→19:23)
[2017-06-26] MEDS: INSULIN REGULAR, HUMAN 300 UNIT/3 ML VIAL SQ PRN ×3 (01:50→18:08)
[2017-06-26] MEDS: BLOOD SUGAR DIAGNOSTIC 1 EACH STRIP VI SCH ×4 (01:52→18:06)
[2017-06-26 03:49] VITALS: BP 135/58
[2017-06-26] MEDS: PIPERACILLIN/TAZOBACTAM/D5W 3.375 G in PREMIXED 1 EACH IV SCH ×3 (05:18→22:49)
[2017-06-26] MEDS: IV D5W 1000ML 1,000 ML IV PRN (05:19)
--- NOTE | 2017-06-26 05:45 | NUR ---
PT SLEPT WELL THROUGH THE NIGHT AND WAS EASILY AWOKEN, PT IS VERY CONFUSED, PULLING AT HIS LINES, FIGHTING WHEN STAFF TRY TO REPOSITION HIM. PT NG TUBE IS CLAMPED. PT SHOWS NO S/S OF DIFFICULTY BREATHING BUT PT HAS LARGE AMOUNTS OF MUCUS AND SOUNDS VERY CONGESTED, COUGHS UP MUCUS BUT THEN SWALLOWS. PT WAS SUCTIONED MULTIPLE TIMES DURING THE NIGHT BUT STILL SOUNDS CONGESTED. PT REPOSITIONED DURING THE NIGHT, ALL NEEDS MET, SAFETY MEASURES ARE IN PLACE, CALL LIGHT WITHIN REACH, BED ALARM IS ON.
[2017-06-26] MEDS: LEVOTHYROXINE SODIUM 25 MCG TABLET NG SCH (06:28)
[2017-06-26] MEDS: PANTOPRAZOLE SODIUM 40 MG VIAL IV SCH (06:34)
[2017-06-26 06:50] LABS: CARBON DIOXIDE 31 mmol/L (21-32); CHLORIDE 106 mmol/L (98-107); CREATININE 1.5 mg/dL (0.6-1.3); GLUCOSE 165 mg/dL (74-106); UREA NITROGEN, BLOOD 27 mg/dL (7-18)
--- NOTE | 2017-06-26 07:00 | NUR ---
Patient is at GI lab for EGD with PEG placement
[2017-06-26 07:26] LABS: BASOPHILS # (AUTO) 0.1 K/uL (0.0-8.0); BASOPHILS % (AUTO) 1.1 % (0.0-2.0); EOSINOPHILS # (AUTO) 0.3 K/uL (0.0-0.7); EOSINOPHILS % (AUTO) 2.5 % (0.0-7.0); HEMATOCRIT 26.9 % (36.7-47.1); HEMOGLOBIN 8.9 g/dL (12.5-16.3); LYMPHOCYTES % (AUTO) 8.4 % (20.5-51.5); MEAN CORPUSCULAR HEMOGLOBIN 30.4 uug (23.8-33.4); MEAN CORPUSCULAR HGB CONC 33 g/dL (32.5-36.3); MEAN CORPUSCULAR VOLUME 91.7 fL (73.0-96.2); MONOCYTES # (AUTO) 0.7 K/uL (2.0-10.0); MONOCYTES % (AUTO) 5.9 % (0.0-11.0); NEUTROPHILS % (AUTO) 82.1 % (38.5-71.5); PLATELET COUNT (AUTO) 348 K/uL (152-348); RED BLOOD CELL COUNT(AUTO) 2.93 MIL/uL (4.06-5.63); WHITE BLOOD COUNT (AUTO) 12.1 K/uL (3.6-10.2)
--- NOTE | 2017-06-26 08:30 | NUR ---
Came back from Recovery, awake, alert. PEG in place, with abdominal binder for safety to prevent pulling of tube. Vitals taken as follows : BP -115/68 HR - 82 RR - 20 T - 97.4 O2 sat - 96% no acute distress noted
[2017-06-26] MEDS: LACTOBACILLUS RHAMNOSUS GG 1 EACH CAPSULE NG SCH ×2 (08:59→20:12)
[2017-06-26] MEDS: FUROSEMIDE 20 MG/2 ML VIAL IV SCH (08:59)
[2017-06-26] MEDS: FERROUS SULFATE 300 MG/5 ML LIQUID UDC NG SCH ×2 (09:00→20:12)
[2017-06-26] MEDS: Z GUARD REMEDY PASTE 57 GM TUBE TOP SCH ×2 (09:00→20:14)
[2017-06-26] MEDS: VALSARTAN 80 MG TABLET NG SCH ×2 (09:00→20:13)
[2017-06-26] MEDS: AMLODIPINE 5 MG TABLET NG SCH ×2 (09:00→20:13)
[2017-06-26 11:28] VITALS: BP 147/59
[2017-06-26] MEDS ORDERED: IV NORMAL SALINE 1000 ML BAG IV ONE (12:43)
[2017-06-26] MEDS ORDERED: PROPOFOL 200 MG/20 ML BOTTLE IV ONE (12:43)
[2017-06-26] MEDS ORDERED: LIDOCAINE HCL 1% 20 ML VIAL MC ONE (12:43)
--- NOTE | 2017-06-26 13:00 | NUR ---
Patient in bed, asleep. In no acute distress. Noted with some congestion, suctioned, able to tolerate the procedure well. Turned and repositioned. Will continue to monitor.
[2017-06-26] MEDS: POTASSIUM CHLORIDE 50 ML IV SCH ×4 (14:29→19:28)
--- NOTE | 2017-06-26 18:13 | NUR ---
End of shift note: Patient in bed, asleep, in no acute distress. Turned and repositioned. kept clean and dry. IV Potassium hanging, able to tolerate well. No s/s of pain or SOB noted. All needs attended and met. Will continue to monitor.
[2017-06-26] MEDS ORDERED: POTASSIUM CHLORIDE 50 ML IV SCH (20:00)
--- NOTE | 2017-06-26 20:00 | NUR ---
PT IN ROOM ALERT AWAKE IN ROOM IN NO ACUTE DISTRESS. UNABLE TO MAKE NEEDS KNOWN. G-TUBE IN TACT WITH ABDOMINAL BINDER IN PLACE. WILL CONTINUE TO MONITOR. MAINTAINING IV KCL AT THIS TIME.
[2017-06-26 20:12] VITALS: BP 136/50
[2017-06-26] MEDS: TERAZOSIN 5 MG CAPSULE NG SCH (20:13)
[2017-06-27] MEDS: BLOOD SUGAR DIAGNOSTIC 1 EACH STRIP VI SCH ×4 (00:06→17:54)
[2017-06-27] MEDS: ALBUTEROL SULFATE 2.5 MG/3 ML NEBU NEB SCH ×4 (00:44→19:18)
[2017-06-27] MEDS: IPRATROPIUM BROMIDE 0.5 MG/2.5 ML NEBU NEB SCH ×4 (00:44→19:18)
[2017-06-27 04:00] VITALS: BP 148/67
[2017-06-27] MEDS: INSULIN REGULAR, HUMAN 300 UNIT/3 ML VIAL SQ PRN ×3 (05:41→17:55)
[2017-06-27] MEDS: PIPERACILLIN/TAZOBACTAM/D5W 3.375 G in PREMIXED 1 EACH IV SCH ×2 (05:42→13:52)
[2017-06-27] MEDS ORDERED: GLUCERNA 1.2 1000ML LIQUID GT PRN (06:00)
[2017-06-27] MEDS: IV D5W 1000ML 1,000 ML IV PRN (06:01)
[2017-06-27 06:10] LABS: CARBON DIOXIDE 30 mmol/L (21-32); CHLORIDE 104 mmol/L (98-107); CREATININE 1.3 mg/dL (0.6-1.3); GLUCOSE 182 mg/dL (74-106); UREA NITROGEN, BLOOD 22 mg/dL (7-18)
[2017-06-27] MEDS: PANTOPRAZOLE SODIUM 40 MG VIAL IV SCH (06:20)
[2017-06-27] MEDS: LEVOTHYROXINE SODIUM 25 MCG TABLET NG SCH (06:20)
--- NOTE | 2017-06-27 06:30 | NUR ---
PT STARTED ON GLUCERNA AT 30ML HR AND ABLE TO TOLERATE TUBE FEEDING. NO S/S OF HYPO/HYPERGLYCEMIA. BS NOTED 170 WITH 3U OF HUMULIN GIVEN. MAINTAINING IV FLUIDS D5W AT 75ML/HR. PT REPOSITIONED WITH MEPILEX INTACT TO SACRAL AREA. WILL CONTINUE TO MONITOR. GRAND DAUGHTER CHELSY IS AWARE.
--- NOTE | 2017-06-27 07:10 | NUR ---
RECEIVED REPORT FROM FISH CONSERVATIONIST NURSE, PATEINT IN BED ASLEEP, NO DISTRESS NOTED AT THIS TIME, QUINTANILLA DRAINING, TUBE FEEDING RUNNING. BED IN LOW POSITION, SIDE RAILS UP X2, BED ALARM SET. AIR MATTRESS INFLATED.
[2017-06-27] MEDS: FUROSEMIDE 20 MG/2 ML VIAL IV SCH (09:00)
[2017-06-27] MEDS: FERROUS SULFATE 300 MG/5 ML LIQUID UDC NG SCH ×2 (09:01→20:06)
[2017-06-27] MEDS: LACTOBACILLUS RHAMNOSUS GG 1 EACH CAPSULE NG SCH ×2 (09:01→20:05)
[2017-06-27] MEDS: Z GUARD REMEDY PASTE 57 GM TUBE TOP SCH ×2 (09:02→20:06)
[2017-06-27] MEDS: AMLODIPINE 5 MG TABLET NG SCH ×2 (09:05→20:06)
[2017-06-27] MEDS: VALSARTAN 80 MG TABLET NG SCH ×2 (09:05→20:06)
--- NOTE | 2017-06-27 10:00 | NUR ---
INCREASED TUBE FEEDING BY 10CC/HR.
[2017-06-27 11:32] VITALS: BP 144/68
--- NOTE | 2017-06-27 12:04 | NUR ---
PATIENT SEEN BY ID DATA CONTROL CLERK SUPERVISOR.
--- NOTE | 2017-06-27 14:00 | NUR ---
TUBE FEEDING INCREASED BY 10CC/HR
[2017-06-27 15:34] VITALS: BP 125/50
--- NOTE | 2017-06-27 18:31 | NUR ---
Patient has been cooperative with care, all needs met, discharge paperwork completed along with wound documentation, report called to L[place]. Tube feeding is running at 60cc/hr. Currently patient is in bed, no distress noted, bed in low position, side rails up x2.
--- NOTE | 2017-06-27 19:30 | NUR ---
Received patient laying comfortably in bed. No acute distress noted. Non verbal. HOB elevated. Aspiration pre-cautions observed. On O2 2L NC. Pacemaker on the left Chest Wall. IV S.L on left FA and AC. Feeding tube in place with abd. binding for security. Feeding is at 60 cc/hr. on Glucerna 1.2. Sykes in place, draining yellow and clear urine. Patient is on [employer] specialty mattress. DVT pumps on. Safety initiated. Call light within reach. Will continue to monitor.
[2017-06-27 19:54] VITALS: BP 153/55
[2017-06-27 20:06] VITALS: BP 135/50
[2017-06-27] MEDS: TERAZOSIN 5 MG CAPSULE NG SCH (20:06)
[2017-06-27] MEDS: LORAZEPAM 2 MG/1 ML VIAL IV PRN (20:28)
--- NOTE | 2017-06-27 21:20 | NUR ---
Transport team here to picker tender helper the patient to transport him to [facility]. In stable condition. No acute distress noted. Vital signs stable. IV removed. Discharged protocol followed.
== END 2017-06-27 21:05 | DRG 871 ==
LOC: ER 16:14 → TELE 18:13 → MED 06-23 03:45
PROVIDERS: ADMIT Internal Medicine; ATTEND Internal Medicine
PROC: 0DH67UZ Insertion of Feeding Device into Stomach, Via Natural or Artificial Opening (ICD-10-PCS; 2017-06-24)
PROC: 3E0G76Z Introduction of Nutritional Substance into Upper GI, Via Natural or Artificial Opening (ICD-10-PCS; 2017-06-24)
PROC: 0DH63UZ Insertion of Feeding Device into Stomach, Percutaneous Approach (ICD-10-PCS; principal; 2017-06-26 07:28)
DX: A41.9 Sepsis, unspecified organism (principal); G93.41 Metabolic encephalopathy; B37.1 Pulmonary candidiasis; N17.0 Acute kidney failure with tubular necrosis; E43 Unspecified severe protein-calorie malnutrition; J16.8 Pneumonia due to other specified infectious organisms; I50.33 Acute on chronic diastolic (congestive) heart failure; R13.10 Dysphagia, unspecified; B48.8 Other specified mycoses; D68.59 Other primary thrombophilia; J44.0 Chronic obstructive pulmonary disease with (acute) lower respiratory infection; I13.0 Hypertensive heart and chronic kidney disease with heart failure and stage 1 through stage 4 chronic kidney disease, or unspecified chronic kidney disease; E87.0 Hyperosmolality and hypernatremia; Z68.1 Body mass index [BMI] 19.9 or less, adult; E11.22 Type 2 diabetes mellitus with diabetic chronic kidney disease; I48.2 Chronic atrial fibrillation; E86.0 Dehydration; R65.20 Severe sepsis without septic shock; E11.65 Type 2 diabetes mellitus with hyperglycemia; N18.9 Chronic kidney disease, unspecified; I25.10 Atherosclerotic heart disease of native coronary artery without angina pectoris; Z95.1 Presence of aortocoronary bypass graft; Z87.01 Personal history of pneumonia (recurrent); H04.129 Dry eye syndrome of unspecified lacrimal gland; Z79.4 Long term (current) use of insulin; Z95.0 Presence of cardiac pacemaker; F03.90 Unspecified dementia, unspecified severity, without behavioral disturbance, psychotic disturbance, mood disturbance, and anxiety; M19.90 Unspecified osteoarthritis, unspecified site; K21.9 Gastro-esophageal reflux disease without esophagitis; D47.3 Essential (hemorrhagic) thrombocythemia; Z87.440 Personal history of urinary (tract) infections; I35.0 Nonrheumatic aortic (valve) stenosis; E03.9 Hypothyroidism, unspecified; E87.6 Hypokalemia; N40.0 Benign prostatic hyperplasia without lower urinary tract symptoms; D64.9 Anemia, unspecified; G93.89 Other specified disorders of brain; Z79.899 Other long term (current) drug therapy; Z86.73 Personal history of transient ischemic attack (TIA), and cerebral infarction without residual deficits; I70.0 Atherosclerosis of aorta; I67.2 Cerebral atherosclerosis
CPT/HCPCS: 36415; 43235; 70030-TC; 70450; 71045; 74018; 74230; 83550; 83605; 83735; 84100; 84443; 85025; 85610; 85730; 87040; 87070; 87086; 92610; 92611; 93005; 94640; 94664; A4217; A4663; C9113; J0360; J1815; J1940; J2060; J2543; J3370; J3480; J3490; J3590; J7030; J7042; J7070